=== PATIENT | male | born 1940 | race Caucasian/White ===

== ENCOUNTER 2018-09-29 08:25 | Day surgery (SDC) | payer MEDICARE, OTHER ==
[2018-09-29] MEDS ORDERED: Depo-Medrol 40 MG/ML IM ONE (08:26)
[2018-09-29] MEDS ORDERED: Xylocaine-Mpf 2% 5 Ml Vial IJ ONE (08:26)
[2018-09-29] MEDS ORDERED: DIPRIVAN 200 MG/20 ML IV ONE (08:26)
--- NOTE | 2018-09-29 10:58 | XRAY ---
15 seconds fluoroscopy time in surgery for L3-S1 MBB.
--- NOTE | 2018-09-29 11:08 | XRAY ---
Indication: L3-S1 MBB. Intraoperative fluoroscopy was provided for 15 seconds. 2 digital spot images submitted for interpretation demonstrates posterior spinal needle tips projecting over the expected course of the left and right L3-S1 nerve roots. Correlate with intraoperative findings/report.
[2018-09-29] MEDS ORDERED: Lactated Ringers 1,000 ML IV ONE (14:58)
== END 2018-09-29 10:05 | disposition home or self-care (01) ==
LOC: SDC-PAIN 08:25
PROVIDERS: ATTEND Psychiatry & Neurology Pain Medicine
DX: M47.816 Spondylosis without myelopathy or radiculopathy, lumbar region (principal); I10 Essential (primary) hypertension; E11.9 Type 2 diabetes mellitus without complications; Z79.899 Other long term (current) drug therapy; M54.5 Low back pain
CPT/HCPCS: 72020; 77002; J1030; J2704

== ENCOUNTER 2018-10-27 07:33 | Day surgery (SDC) | payer MEDICARE, OTHER ==
[2018-10-27] MEDS ORDERED: DIPRIVAN 200 MG/20 ML IV ONE (07:34)
[2018-10-27] MEDS ORDERED: Marcaine 0.5% SDV 10 ML IJ ONE (07:34)
[2018-10-27] MEDS ORDERED: Ketamine HCl 50 MG/ML IV ONE (07:34)
[2018-10-27] MEDS ORDERED: Xylocaine 1% Vial 30 ML PF IJ ONE (07:34)
[2018-10-27] MEDS ORDERED: Depo-Medrol 40 MG/ML IM ONE (07:34)
--- NOTE | 2018-10-27 10:59 | XRAY ---
Indication: Bilateral L3-S1 MBB. Intraoperative fluoroscopy was provided for 15 seconds. Single digital spot image submitted for interpretation demonstrates posterior spinal needle tips projecting over the expected course of the left and right L3-S1 nerve roots. Correlate with intraoperative findings/report.
--- NOTE | 2018-10-27 11:29 | XRAY ---
15 seconds fluoroscopy time in surgery for L3-S1 MBB.
[2018-10-27] MEDS ORDERED: Lactated Ringers 1,000 ML IV ONE (14:27)
== END 2018-10-27 09:43 | disposition home or self-care (01) ==
LOC: SDC-PAIN 07:33
PROVIDERS: ATTEND Psychiatry & Neurology Pain Medicine
DX: M47.817 Spondylosis without myelopathy or radiculopathy, lumbosacral region (principal); E11.9 Type 2 diabetes mellitus without complications; I10 Essential (primary) hypertension; M19.90 Unspecified osteoarthritis, unspecified site; I25.10 Atherosclerotic heart disease of native coronary artery without angina pectoris
CPT/HCPCS: 36415; 72100; 77002; 80048; 80061; 83721; 99100; J1030; J2001; J2704

== ENCOUNTER 2018-11-17 10:01 | Day surgery (SDC) | payer MEDICARE, OTHER ==
[2018-11-17] MEDS ORDERED: Depo-Medrol 40 MG/ML IM ONE (10:02)
[2018-11-17] MEDS ORDERED: Xylocaine 1% Vial 30 ML PF IJ ONE (10:02)
[2018-11-17] MEDS ORDERED: Marcaine 0.5% SDV 10 ML IJ ONE (10:02)
[2018-11-17] MEDS ORDERED: DIPRIVAN 200 MG/20 ML IV ONE (10:02)
[2018-11-17] MEDS ORDERED: Ketamine HCl 50 MG/ML IJ ONE (10:02)
--- NOTE | 2018-11-17 12:43 | XRAY ---
Indication: Left L3-S1 RFA. Intraoperative fluoroscopy was provided for 59 seconds. 3 digital spot images submitted for interpretation demonstrates posterior needle tips along the expected course of the left L3-S1 nerve roots. Correlate with intraoperative findings/report.
--- NOTE | 2018-11-17 12:48 | XRAY ---
59 seconds fluoroscopy time in surgery for left Ll3-S1 RFA.
[2018-11-17] MEDS ORDERED: Lactated Ringers 1,000 ML IV ONE (18:04)
== END 2018-11-17 11:48 | disposition home or self-care (01) ==
LOC: SDC-PAIN 10:01
PROVIDERS: ATTEND Psychiatry & Neurology Pain Medicine
DX: M47.817 Spondylosis without myelopathy or radiculopathy, lumbosacral region (principal); Z79.899 Other long term (current) drug therapy; E11.9 Type 2 diabetes mellitus without complications; M19.90 Unspecified osteoarthritis, unspecified site; I10 Essential (primary) hypertension; I25.10 Atherosclerotic heart disease of native coronary artery without angina pectoris
CPT/HCPCS: 64633; 64635; 64636; 72020; 77002; 82962; 99100; J1030; J2001; J2704

== ENCOUNTER 2018-12-01 07:51 | Day surgery (SDC) | payer MEDICARE, OTHER ==
[2018-12-01] MEDS ORDERED: Xylocaine 1% Vial 30 ML PF IJ ONE (07:52)
[2018-12-01] MEDS ORDERED: LIDOCAINE HCL 2% 100 MG/5 ML IJ ONE (07:52)
[2018-12-01] MEDS ORDERED: Depo-Medrol 40 MG/ML IM ONE (07:52)
[2018-12-01] MEDS ORDERED: Marcaine 0.5% SDV 10 ML IJ ONE (07:52)
[2018-12-01] MEDS ORDERED: DIPRIVAN 200 MG/20 ML IV ONE (07:52)
[2018-12-01] MEDS ORDERED: Ketamine HCl 50 MG/ML IJ ONE (07:52)
--- NOTE | 2018-12-01 11:23 | XRAY ---
Indication: Right L3-S1 RFA. Intraoperative fluoroscopy was provided for 36 seconds. 4 digital spot images submitted for interpretation demonstrates posterior needle tips along the expected course of the right L3-S1 nerve roots. Correlate with intraoperative findings/report.
--- NOTE | 2018-12-01 11:24 | XRAY ---
36 seconds fluoroscopy time in surgery for right L3-S1 RFA.
[2018-12-01] MEDS ORDERED: Lactated Ringers 1,000 ML IV ONE (17:08)
== END 2018-12-01 10:20 | disposition home or self-care (01) ==
LOC: SDC-PAIN 07:51
PROVIDERS: ATTEND Psychiatry & Neurology Pain Medicine
DX: M47.816 Spondylosis without myelopathy or radiculopathy, lumbar region (principal); E11.9 Type 2 diabetes mellitus without complications; I10 Essential (primary) hypertension; I25.10 Atherosclerotic heart disease of native coronary artery without angina pectoris; Z86.73 Personal history of transient ischemic attack (TIA), and cerebral infarction without residual deficits; Z95.0 Presence of cardiac pacemaker; M19.90 Unspecified osteoarthritis, unspecified site
CPT/HCPCS: 64635; 64636; 72020; 77002; 82962; 99100; J1030; J2001; J2704

== ENCOUNTER 2019-02-03 06:24 | Day surgery (SDC) | payer MEDICARE, OTHER ==
[2019-02-03] MEDS ORDERED: Lactated Ringers 1,000 ML IV ONE (06:47)
[2019-02-03] MEDS ORDERED: Lactated Ringers 1,000 ML IV SCH (07:00)
--- NOTE | 2019-02-03 08:13 | HP ---
DATE OF SURGERY: 02/03/2019 ANTICIPATED PROCEDURE: Colonoscopy. HISTORY OF PRESENT ILLNESS: The patient had rectal bleeding and presents for endoscopic exam referred by Dr. Khushbu Correa. PAST MEDICAL HISTORY: ALLERGIES: NONE. MEDICATIONS: See list. PAST SURGICAL HISTORY: Shoulder surgery. Bypass. SOCIAL HISTORY: Negative. FAMILY HISTORY: Negative. REVIEW OF SYSTEMS: Negative. PHYSICAL EXAMINATION: VITAL SIGNS: Normal. CHEST: Clear. COR: Regular. ABDOMEN: Satisfactory. IMPRESSION: Rectal bleeding. PLAN: Colonoscopy.
[2019-02-03] MEDS ORDERED: DIPRIVAN 200 MG/20 ML IV ONE ×2 (08:43→09:00)
[2019-02-03] MEDS ORDERED: PHENYLEPHRINE HCL ONE (08:51)
[2019-02-03 10:26] VITALS: O2SAT 95
[2019-02-03 10:29] VITALS: BP 134/65; PULSE 70
--- NOTE | 2019-02-03 13:02 | OP ---
SURGERY DATE/TIME: 02/03/2019 0848 PREOPERATIVE DIAGNOSIS: Rectal bleeding. POSTOPERATIVE DIAGNOSIS: Moderate internal hemorrhoids, one cecal polyp. PROCEDURE: Colonoscopy complete to cecum. There was a substantial amount of angulation and redundancy of the hepatic flexure but the cecum was obtained. Prep was marginal. SURGEON: Andrew Zavaleta M.D. WIRE MACHINE OPERATOR: Cameron Johnson M.D. ANESTHESIA: MAC. COMPLICATIONS: None. CONDITION: Stable. FOLLOW UP: Three years. INDICATION: The patient presents with rectal bleeding. DESCRIPTION OF PROCEDURE: Taken to endoscopy. Left lateral decubitus position. He is a robust gentleman. Anal tone was satisfactory. Scope introduced. There were moderate internal hemorrhoids. The scope advanced to the hepatic flexure and it took some care, patience and abdominal pressure to advance this over into the cecum which was about another 14 inches down. Base of cecum was identified. There was a 1 cm cecal polyp that was taken with cold biopsy forceps to extinction. On circumferential withdraw, no additional mucosal lesions although prep was marginal. There were moderate internal hemorrhoids. The patient tolerated the procedure satisfactorily. Recommended follow up in three years.
== END 2019-02-03 10:15 | disposition home or self-care (01) ==
LOC: SDC 06:24
PROVIDERS: ATTEND Surgery
DX: K62.5 Hemorrhage of anus and rectum (principal); K64.8 Other hemorrhoids; D12.0 Benign neoplasm of cecum; E11.9 Type 2 diabetes mellitus without complications
CPT/HCPCS: 82962; 99100; J2370; J2704

== ENCOUNTER 2019-11-11 07:07 | Observation (INO) | payer MEDICARE, OTHER ==
[2019-11-11] MEDS ORDERED: Sodium Chloride 0.9% 1000 ML 1,000 ML IV STA (07:52)
[2019-11-11] MEDS ORDERED: Sodium Chloride 0.9% 1000 ML 1,000 ML ONE (07:57)
--- NOTE | 2019-11-11 07:59 | ERPHSYRPT ---
- History of Present Illness Time Seen by Provider: 11/11/19 07:33 Source: patient Exam Limitations: no limitations Patient Subjective Stated Complaint: lower back and L hip pain d/t recent falls Triage Nursing Assessment: pt to ED c/o recent falls x few days and now having lower back and L hip pain. unable to give pain score at this time, "it just hurts." pt back to room via WC. transfers to bed with 1 assist. pt states multiple episodes dizziness and falls over last few days. pt states he is on plavix and zorelto. denies hitting head, no LOC. pt A&Ox3 at this time. communicates appropriately. lung sounds clear and equal bilaterally. heart sounds clear. bowel sounds present in all quads. pt has pacemaker and artificial heart valve. Physician History: 78 years old male with history of coronary artery disease status post CABG, pacemaker placement, CVA, diabetes mellitus, hypertension, hyperlipidemia presented in the ER with chief complaint of frequent fall and generalized weakness for the last 3 to 4 days. Patient reports having multiple falls whenever he tries to get up and walk and hit his head couple of times. No loss of consciousness. Patient reports he feels dizzy and lightheaded but denies any chest pain palpitations or shortness of breath. He denies any focal weakness but all over. Denies any recent nausea vomiting or diarrhea. No abdominal pain. No recent fever or chills reported. He is complaining of pain in the tailbone area mild to moderate especially with ambulation and palpation. Timing/Duration: day(s) (4), intermittent, worse Severity: moderate Modifying Factors: Improves With: movement Associated Symptoms: weakness (generalized) Allergies/Adverse Reactions: No Known Drug Allergies Allergy (Verified 11/11/19 07:34) Home Medications: Clopidogrel Bisulfate 75 mg [PLAVIX 75 MG Tablet] 75 mg PO DAILY 01/26/19 [History] Docusate Sodium 100 mg [Colace 100 MG] 100 mg PO DAILY 01/26/19 [History] Furosemide 40 mg [Lasix 40 MG] 40 mg PO DAILY 01/26/19 [History] Isosorbide Mononitrate 30 mg [Imdur 30 MG] 30 mg PO DAILY 01/26/19 [History ] Magnesium Oxide 400 mg [Mag-Ox 400] 400 mg PO DAILY 01/26/19 [History] Metoprolol Succinate 50 mg [Toprol Xl 50 MG] 50 mg PO DAILY 01/26/19 [ History] Pravastatin Sodium [Pravachol] 40 mg PO DAILY 01/26/19 [History] Rivaroxaban [Xarelto] 15 mg PO DAILY 01/26/19 [History] Sacubitril/Valsartan [Entresto 49 mg-51 mg Tablet] 1 each PO BID 01/26/19 [ History] Insulin Glargine,Hum.rec.anlog [Lantus] 100 unit SQ DAILY 02/03/19 [History] Insulin Lispro [Humalog] 100 unit SQ DAILY PRN 02/03/19 [History] Hx Tetanus, Diphtheria Vaccination/Date Given: No Hx Influenza Vaccination/Date Given: Yes Hx Pneumococcal Vaccination/Date Given: Yes Immunizations Up to Date: No Travel Risk - International Travel Have you traveled outside of the country in past 3 weeks: No Have you or anyone close to you been diagnosed with or: No Do your reside in a community with a known COVID-19 case?: Yes If Yes where:: [place] - Coronavirus Screening Has patient experienced Coronavirus symptoms: No - Review of Systems Constitutional: Fatigue Eyes: No Symptoms Ears, Nose, & Throat: No Symptoms Respiratory: No Symptoms Cardiac: No Symptoms Abdominal/Gastrointestinal: No Symptoms Genitourinary Symptoms: No Symptoms Musculoskeletal: Fall, Injury Skin: No Symptoms Neurological: No Symptoms Psychological: No Symptoms Endocrine: No Symptoms Hematologic/Lymphatic: No Symptoms Immunological/Allergic: No Symptoms - Past Medical History Pertinent Past Medical History: Yes Neurological History: Stroke ENT History: Cataracts Cardiac History: Congestive Heart Failure, Coronary Artery Disease, High Cholesterol, Hypertension Respiratory History: Sleep Apnea Endocrine Medical History: Diabetes Type II Musculoskeletal History: Arthritis GI Medical History: No Pertinent History History: No Pertinent History Psycho-Social History: No Pertinent History Male Reproductive Disorders: No Pertinent History - Past Surgical History Past Surgical History: Yes Neuro Surgical History: No Pertinent History Cardiac: CABG, Pacemaker Respiratory: No Pertinent History Gastrointestinal: No Pertinent History Genitourinary: No Pertinent History Musculoskeletal: Other Male Surgical History: No Pertinent History Other Surgical History: right knee, right shoulder surgery.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 - Social History Smoking Status: Former smoker Exposure to second hand smoke: No Drug Use: none - Nursing Vital Signs Nursing Vital Signs: Initial Vital Signs Temperature 97.8 F 11/11/19 07:17 Pulse Rate 60 11/11/19 07:17 Respiratory Rate 16 11/11/19 07:17 Blood Pressure 141/58 11/11/19 07:17 O2 Sat by Pulse Oximetry 96 11/11/19 07:17 - Physical Exam General Appearance: no apparent distress, alert Eye Exam: PERRL/EOMI, eyes nml inspection Ears, Nose, Throat Exam: normal ENT inspection, TMs normal, pharynx normal Neck Exam: normal inspection, non-tender, supple, full range of motion Respiratory Exam: normal breath sounds, lungs clear, airway intact, No respiratory distress Cardiovascular Exam: regular rate/rhythm, normal heart sounds, normal peripheral pulses Gastrointestinal/Abdomen Exam: soft, normal bowel sounds, No tenderness, No distention Rectal Exam: deferred Back Exam: decreased range of motion, point tenderness (Tailbone area), other, No CVA tenderness, No vertebral tenderness Extremity Exam: normal inspection, normal range of motion, pelvis stable Neurologic Exam: alert, oriented x 3, cooperative, jig borer II-XII nml as tested, normal mood/affect Skin Exam: normal color SpO2 Interpretation: normal SpO2: 96 O2 Delivery: Room Air - Course Nursing assessment & vital signs reviewed: Yes EKG Interpreted by Me: RATE (60), Right [place] Deviation (Rhythm. Wide QRS complexes. No acute ST elevation or depression) Ordered Tests: Active Orders 24 hr Category Date Time Status Student Admissions Clerk STAT Care 11/11/19 07:50 Active EKG-ER Only STAT Care 11/11/19 07:48 Active IV Insertion STAT Care 11/11/19 07:48 Active Orthostatic Vital Signs STAT Care 11/11/19 07:48 Active 2000 Calorie ADA Diet 11/11/19 Breakfast Active CHEST 1 VIEW (PORTABLE) Stat Exams 11/11/19 07:49 Completed HEAD WITHOUT CONTRAST [CT] Stat Exams 11/11/19 07:49 Completed LUMBAR COMPLETE (MIN 4 VIEWS) Stat Exams 11/11/19 08:13 Completed SACRUM AND COCCYX Stat Exams 11/11/19 08:15 Completed BNP [NT PRO BNP] Stat Lab 11/11/19 07:40 Completed CBC W DIFF Stat Lab 11/11/19 07:40 Completed CMP Stat Lab 11/11/19 07:40 Completed Lactic Acid Stat Lab 11/11/19 08:36 Completed TROPONIN Q3H Lab 11/11/19 07:40 Completed TROPONIN Q3H Lab 11/11/19 11:00 Ordered TROPONIN Q3H Lab 11/11/19 14:00 Ordered TROPONIN Q3H Lab 11/11/19 17:00 Ordered TROPONIN Q3H Lab 11/11/19 20:00 Ordered UA W/RFX UR CULTURE Stat Lab 11/11/19 07:49 Completed Medication Summary Discontinued Medications Generic Name Dose Route Start Last Admin Trade Name Freq PRN Reason Stop Dose Admin Sodium Chloride 1,000 mls @ 499 mls/hr 11/11/19 07:52 11/11/19 10:56 Sodium Chloride 0.9% 1000 Ml IV 11/11/19 09:52 Infused .Q2H1M STA Infusion Sodium Chloride Confirm 11/11/19 07:57 Sodium Chloride 0.9% 1000 Ml Administered 11/11/19 07:58 Dose 1,000 mls @ ud .ROUTE .STK-MED ONE Lab/Rad Data: Laboratory Result Diagrams 11/11/19 07:40 11/11/19 07:40 Laboratory Results 11/11/19 11/11/19 11/11/19 Range/Units 08:36 07:49 07:40 WBC (4.0-10.5) K/mm3 RBC (4.1-5.6) M/mm3 Hgb (12.5-18.0) gm/dl Hct (42-50) % MCV (78-100) fl MCH (26-32) pg MCHC (32-36) g/dl RDW (11.5-14.0) % Plt Count (150-450) K/mm3 MPV (7.5-11.0) fl Gran % (36.0-66.0) % Eos # (Auto) (0-0.5) Absolute Lymphs (auto) (1.0-4.6) Absolute Monos (auto) (0.0-1.3) Lymphocytes % (24.0-44.0) % Monocytes % (0.0-12.0) % Eosinophils % (0.00-5.0) % Basophils % (0.0-0.4) % Absolute Granulocytes (1.4-6.9) Basophils # (0-0.4) Sodium (137-145) mmol/L Potassium (3.5-5.1) mmol/L Chloride (98-107) mmol/L Carbon Dioxide (22-30) mmol/L Anion Gap (5-15) MEQ/L BUN (9-20) mg/dL Creatinine (0.66-1.25) mg/dL Estimated GFR ML/MIN Glucose (74-106) mg/dL Lactic Acid 1.1 (0.4-2.0) Calcium (8.4-10.2) mg/dL Total Bilirubin (0.2-1.3) mg/dL AST (17-59) U/L ALT (0-50) U/L Alkaline Phosphatase (38-126) U/L Troponin I < 0.012 (0.000-0.034) ng/mL NT-Pro-B Natriuret Pep (0-1800) pg/mL Serum Total Protein (6.3-8.2) g/dL Albumin (3.5-5.0) g/dL Urine Color YELLOW (YELLOW) Urine Appearance CLEAR (CLEAR) Urine pH 5.0 (5-6) Ur Specific [place] 1.014 (1.005-1.025) Urine Protein NEGATIVE (Negative) Urine Ketones NEGATIVE (NEGATIVE) Urine Blood NEGATIVE (0-5) Rigoberto/ul Urine Nitrite NEGATIVE (NEGATIVE) Urine Bilirubin NEGATIVE (NEGATIVE) Urine Urobilinogen NEGATIVE (0-1) mg/dL Ur Leukocyte Esterase NEGATIVE (NEGATIVE) Urine WBC (Auto) 0-2 (0-5) /HPF Urine RBC (Auto) NONE (0-2) /HPF U Epithel Cells (Auto) NONE (FEW) /HPF Urine Bacteria (Auto) NONE (NEGATIVE) /HPF Other Casts (Auto) NEGATIVE (NEGATIVE) /LPF Urine Mucus (Auto) SLIGHT (NEGATIVE) /HPF Urine Culture Reflexed NO (NO) Urine Glucose NEGATIVE (NEGATIVE) mg/dL 11/11/19 11/11/19 11/11/19 Range/Units 07:40 07:40 07:40 WBC 8.4 (4.0-10.5) K/mm3 RBC 3.77 L (4.1-5.6) M/mm3 Hgb 11.4 L (12.5-18.0) gm/dl Hct 34.9 L (42-50) % MCV 92.6 (78-100) fl MCH 30.2 (26-32) pg MCHC 32.7 (32-36) g/dl RDW 13.9 (11.5-14.0) % Plt Count 218 (150-450) K/mm3 MPV 10.2 (7.5-11.0) fl Gran % 71.1 H (36.0-66.0) % Eos # (Auto) 0.06 (0-0.5) Absolute Lymphs (auto) 1.65 (1.0-4.6) Absolute Monos (auto) 0.66 (0.0-1.3) Lymphocytes % 19.7 L (24.0-44.0) % Monocytes % 7.9 (0.0-12.0) % Eosinophils % 0.7 (0.00-5.0) % Basophils % 0.6 (0.0-0.4) % Absolute Granulocytes 5.97 (1.4-6.9) Basophils # 0.05 (0-0.4) Sodium 141 (137-145) mmol/L Potassium 4.1 (3.5-5.1) mmol/L Chloride 108 H (98-107) mmol/L Carbon Dioxide 26 (22-30) mmol/L Anion Gap 11.2 (5-15) MEQ/L BUN 36 H (9-20) mg/dL Creatinine 1.21 (0.66-1.25) mg/dL Estimated GFR > 60.0 ML/MIN Glucose 69 L (74-106) mg/dL Lactic Acid (0.4-2.0) Calcium 8.9 (8.4-10.2) mg/dL Total Bilirubin 0.40 (0.2-1.3) mg/dL AST 24 (17-59) U/L ALT 12 (0-50) U/L Alkaline Phosphatase 66 (38-126) U/L Troponin I (0.000-0.034) ng/mL NT-Pro-B Natriuret Pep 1250 (0-1800) pg/mL Serum Total Protein 7.2 (6.3-8.2) g/dL Albumin 3.7 (3.5-5.0) g/dL Urine Color (YELLOW) Urine Appearance (CLEAR) Urine pH (5-6) Ur Specific [place] (1.005-1.025) Urine Protein (Negative) Urine Ketones (NEGATIVE) Urine Blood (0-5) Rigoberto/ul Urine Nitrite (NEGATIVE) Urine Bilirubin (NEGATIVE) Urine Urobilinogen (0-1) mg/dL Ur Leukocyte Esterase (NEGATIVE) Urine WBC (Auto) (0-5) /HPF Urine RBC (Auto) (0-2) /HPF U Epithel Cells (Auto) (FEW) /HPF Urine Bacteria (Auto) (NEGATIVE) /HPF Other Casts (Auto) (NEGATIVE) /LPF Urine Mucus (Auto) (NEGATIVE) /HPF Urine Culture Reflexed (NO) Urine Glucose (NEGATIVE) mg/dL - Progress Progress: re-examined Progress Note: 71 years old is evaluated for generalized weakness and frequent falls. He has positive orthostatics. Given IV fluids. Broad work-up was done including CT head which is negative for any acute findings. EKG is paced rhythm, negative initial troponin. Normal lactate. No acute electrolyte abnormality. No UTI. I do not know the exact cause of his weakness, cultures will be obtained, discussed with Dr. Starr, patient would be admitted to telemetry with PT consult. 11/11/19 11:04 Discussed with : Mounika Will see patient in: hospital (observation) Counseled pt/family regarding: lab results, diagnosis, rad results - Departure Departure Disposition: Home Clinical Impression: General weakness, Frequent falls Condition: Fair Critical Care Time: No Referrals: DELGADO CISNEROS [Primary Care Provider] -
[2019-11-11 08:01] LABS: Absolute Neutrophil Ct (ANC) 5.97 (1.4-6.9); BASOPHIL % 0.6 % (0.0-0.4); Basophil (Absolute #) 0.05 (0-0.4); Eosinophil % 0.7 % (0.00-5.0); Eosinophil (Absolute #) 0.06 (0-0.5); Hematocrit 34.9 % (42-50); Hemoglobin 11.4 gm/dl (12.5-18.0); Lymphocyte (Absolute #) 1.65 (1.0-4.6); Lymphocytes % 19.7 % (24.0-44.0); Mean Cell Volume 92.6 fl (78-100); Mean Corpuscular Hemoglobin 30.2 pg (26-32); Mean Corpuscular Hgb Concent. 32.7 g/dl (32-36); Mean Platelet Volume 10.2 fl (7.5-11.0); Monocyte (Absolute #) 0.66 (0.0-1.3); Monocytes % 7.9 % (0.0-12.0); Neutrophil % 71.1 % (36.0-66.0); Platelet Count 218 K/mm3 (150-450); Red Blood Count 3.77 M/mm3 (4.1-5.6); Red Cell Distribution Width 13.9 % (11.5-14.0); White Blood Count 8.4 K/mm3 (4.0-10.5)
[2019-11-11 08:08] LABS: ALBUMIN 3.7 g/dL (3.5-5.0); ALKALINE PHOSPHATASE 66 U/L (38-126); ANION GAP 11.2 MEQ/L (5-15); BLOOD UREA NITROGEN 36 mg/dL (9-20); CHLORIDE 108 mmol/L (98-107); Calcium 8.9 mg/dL (8.4-10.2); Carbon Dioxide 26 mmol/L (22-30); Creatinine 1 1.21 mg/dL (0.66-1.25); Glucose 69 mg/dL (74-106); Potassium 4.1 mmol/L (3.5-5.1); SGOT/AST 24 U/L (17-59); SGPT/ALT 12 U/L (0-50); SODIUM 141 mmol/L (137-145); Total Protein 7.2 g/dL (6.3-8.2)
--- NOTE | 2019-11-11 08:37 | XRAY ---
Indication: Pain and dizziness. Status post fall. Comparison: January 19, 2019. Portable chest remains clear again with a few incidental calcified granulomas. Heart is borderline enlarged again with CABG surgery and left pacemaker. Bony thorax intact. No new/acute findings. Impression: Continued nonacute chest with chronic features.
--- NOTE | 2019-11-11 08:42 | XRAY ---
Indication: Dizziness. Frequent falls. Multiple contiguous axial images obtained through the head without contrast. Comparison: None Age-appropriate global atrophy, mild periventricular degenerative micro-ischemia bilaterally, and remote right basal ganglia lacunar infarct. No acute intracranial hemorrhage, abnormal extra-axial fluid collection, or mass effect. Fourth ventricle is midline without hydrocephalus. Bony calvarium intact. Visualized paranasal sinuses and mastoid air cells are clear. Impression: Nonacute senile brain with incidental remote right basal ganglia lacunar infarct.
--- NOTE | 2019-11-11 08:44 | XRAY ---
Indication: Pain following fall. Comparison: February 02, 2018. 5 views of the lumbar spine unchanged again demonstrating normal alignment with vertebral body heights/disc spaces maintained, mild/moderate multilevel degenerative spondylosis, and scattered aortoiliac calcifications. No new/acute findings.
--- NOTE | 2019-11-11 08:48 | XRAY ---
Indication: Pain following fall. Comparison: None 3 views of the sacrum/coccyx again demonstrates lower lumbar degenerative changes reported separately and scattered vascular calcifications with new left femoral artery stent graft. No acute bony, articular, or soft tissue abnormalities.
[2019-11-11 10:44] LABS: Appearance CLEAR (CLEAR); Bilirubin NEGATIVE (NEGATIVE); Blood NEGATIVE Ery/ul (0-5); Glucose NEGATIVE (NEGATIVE); Ketones NEGATIVE (NEGATIVE); Leukocyte Esterase NEGATIVE (NEGATIVE); Mucus SLIGHT /HPF (NEGATIVE); Nitrite NEGATIVE (NEGATIVE); Protein,Urine Dip NEGATIVE (Negative); Specific Gravity 1.014 (1.005-1.025); Urobilinogen NEGATIVE mg/dL (0-1); WBC 0-2 /HPF (0-5)
[2019-11-11] MEDS ORDERED: HUMALOG SQ PRN (11:59)
[2019-11-11] MEDS: TYLENOL 325 MG PO PRN ×2 (12:40→20:53)
[2019-11-11 14:15] LABS: ANION GAP 10.2 MEQ/L (5-15); Calcium 8.6 mg/dL (8.4-10.2); Creatinine 1 1.3 mg/dL (0.66-1.25); Potassium 3.8 mmol/L (3.5-5.1)
[2019-11-11] MEDS ORDERED: NON-FORMULARY ITEM (Insulin Lispro 100 UNIT) SQ PRN (16:39)
[2019-11-11] MEDS: Sodium Chloride 0.9% 1000 ML 1,000 ML IV SCH (18:00)
[2019-11-11 19:33] VITALS: PULSE 60
[2019-11-11] MEDS: ENTRESTO 49 MG-51 MG TABLET PO SCH (20:53)
[2019-11-12] MEDS: TYLENOL 325 MG PO PRN (05:16)
[2019-11-12 05:36] LABS: BASOPHIL % 0.8 % (0.0-0.4); Basophil (Absolute #) 0.05 (0-0.4); Eosinophil % 1.4 % (0.00-5.0); Eosinophil (Absolute #) 0.09 (0-0.5); Hematocrit 36.3 % (42-50); Hemoglobin 11.8 gm/dl (12.5-18.0); Lymphocyte (Absolute #) 1.71 (1.0-4.6); Lymphocytes % 26.8 % (24.0-44.0); Mean Cell Volume 93.8 fl (78-100); Mean Corpuscular Hemoglobin 30.5 pg (26-32); Mean Corpuscular Hgb Concent. 32.5 g/dl (32-36); Mean Platelet Volume 9.6 fl (7.5-11.0); Monocyte (Absolute #) 0.43 (0.0-1.3); Monocytes % 6.7 % (0.0-12.0); Neutrophil % 64.3 % (36.0-66.0); Platelet Count 215 K/mm3 (150-450); Red Blood Count 3.87 M/mm3 (4.1-5.6); Red Cell Distribution Width 13.7 % (11.5-14.0); White Blood Count 6.4 K/mm3 (4.0-10.5)
[2019-11-12 05:48] LABS: ALBUMIN 3.8 g/dL (3.5-5.0); ALKALINE PHOSPHATASE 74 U/L (38-126); ANION GAP 13.1 MEQ/L (5-15); BLOOD UREA NITROGEN 28 mg/dL (9-20); CHLORIDE 107 mmol/L (98-107); Calcium 8.6 mg/dL (8.4-10.2); Carbon Dioxide 23 mmol/L (22-30); Creatinine 1 1.06 mg/dL (0.66-1.25); Glucose 135 mg/dL (74-106); Potassium 4.3 mmol/L (3.5-5.1); SGOT/AST 26 U/L (17-59); SGPT/ALT 13 U/L (0-50); SODIUM 139 mmol/L (137-145); Total Protein 7.6 g/dL (6.3-8.2)
[2019-11-12 08:02] VITALS: BP 134/61; O2SAT 96
[2019-11-12] MEDS: Sodium Chloride 0.9% 1000 ML 1,000 ML IV SCH (08:22)
[2019-11-12] MEDS: ENTRESTO 49 MG-51 MG TABLET PO SCH (09:50)
[2019-11-12] MEDS: Cymbalta 30 MG Capsule PO SCH ×2 (09:50→10:50)
[2019-11-12] MEDS ORDERED: NON-FORMULARY ITEM (Rivaroxaban [Xarelto] 15 MG) PO SCH (10:00)
[2019-11-12] MEDS ORDERED: XARELTO 10 MG TABLET PO SCH (10:00)
[2019-11-12] MEDS ORDERED: Lasix 40 MG PO SCH (10:00)
[2019-11-12] MEDS ORDERED: Colace 100 MG PO SCH (10:00)
[2019-11-12] MEDS ORDERED: MAG-OX 400 PO SCH (10:00)
[2019-11-12] MEDS ORDERED: NON-FORMULARY ITEM (Pravastatin Sodium [Pravachol] 40 MG) PO SCH (10:00)
[2019-11-12] MEDS ORDERED: ZOCOR 20MG PO SCH (10:00)
[2019-11-12] MEDS ORDERED: Toprol Xl 50 MG PO SCH (10:00)
[2019-11-12] MEDS ORDERED: PLAVIX 75 MG Tablet PO SCH (10:00)
--- NOTE | 2019-11-12 11:28 | PCM.SSS ---
History of Present Illness - Chief Complaint Chief Complaint: General weakness. History of Present Illness: is a 78 year old male pt of Dr. Cisneros with PMHx CAD (hx CABG), PVD (hx stents), artifical heart valve (aorta), pacemaker (replaced 2 wks ago), DM, diabetic peripheral neuropathy, HTN, NESS, and chronic back pain who was admitted through ER with frequent falls and weakness. He denies lizette dizziness. About 2 weeks ago he started having some falls, which gradually increased until the day prior to admission he had falls x5. He did have increased low back pain with the falls. He is on xarelto and plavix. In ER, his CT head and xr lumbar spine were neg. His labs were grossly neg. CXR nonacute. Troponins have been nl x 5. His labs this morning are again unremarkable. Since admission, he has not fallen. He has been up around his room and to the bathroom with no issues. He was found to be orthostatic in ER. His BP have been 130s-140s systolic. He has been on telemetry. In light of the current coronavirus pandemic (and a pending admission of possible COVID-19 this morning), I am discharging this very high risk patient to home. I advised him to stay in; be careful of falling of course, but minimize contacts with others. I am sending a message to Dr. Cisneros who can contact the pt next week to see if she wants him to f/u with her or cardiology or both. - Review of Systems Constitutional: Weakness Cardiac: Chest Pain (mild, did not have to take nitro) Neurological: Other (falls) All Other Systems: Reviewed and Negative Medications & Allergies Home Medications: Home Medication List Clopidogrel Bisulfate 75 mg [PLAVIX 75 MG Tablet] 75 mg PO DAILY 01/26/19 [History Confirmed 11/11/19] Docusate Sodium 100 mg [Colace 100 MG] 100 mg PO DAILY 01/26/19 [History Confirmed 11/11/19] Furosemide 40 mg [Lasix 40 MG] 40 mg PO DAILY 01/26/19 [History Confirmed 11/11/19] Magnesium Oxide 400 mg [Mag-Ox 400] 400 mg PO DAILY 01/26/19 [History Confirmed 11/11/19] Metoprolol Succinate 50 mg [Toprol Xl 50 MG] 50 mg PO DAILY 01/26/19 [ History Confirmed 11/11/19] Pravastatin Sodium [Pravachol] 40 mg PO DAILY 01/26/19 [History Confirmed ] Rivaroxaban [Xarelto] 15 mg PO DAILY 01/26/19 [History Confirmed 11/11/19] Sacubitril/Valsartan [Entresto 49 mg-51 mg Tablet] 1 each PO BID 01/26/19 [ History Confirmed 11/11/19] Insulin Glargine,Hum.rec.anlog [Lantus] 100 unit SQ LUNCH 02/03/19 [History Confirmed 11/11/19] Insulin Lispro [Humalog] 100 unit SQ DAILY PRN 02/03/19 [History Confirmed 11/10] Allergies/Adverse Reactions: Allergies Allergy/AdvReac Type Severity Reaction Status Date / Time No Known Drug Allergies Allergy Verified 11/11/19 07:34 - Past Medical History Past Medical History: Yes Neurological History: Stroke ENT History: Cataracts Cardiac History: Congestive Heart Failure, Coronary Artery Disease, High Cholesterol, Hypertension Respiratory History: Sleep Apnea Endocrine Medical History: Diabetes Type II Musculoskelatal History: Arthritis GI Medical History: No Pertinent History History: No Pertinent History Pyscho-Social History: No Pertinent History Male Reproductive Disorders: No Pertinent History - Past Surgical History Past Surgical History: Yes Neuro Surgical History: No Pertinent History Cardiac History: CABG, Pacemaker Respiratory Surgery: No Pertinent History GI Surgical History: No Pertinent History Genitourinary Surgical Hx: No Pertinent History Musculskeletal Surgical Hx: Other Male Surgical History: No Pertinent History Other Surgical History: right knee, right shoulder surgery.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 - Social History Smoking Status: Former smoker Exposure to second hand smoke: No Alcohol: None Drug Use: none - Physical Exam Vital Signs: Vital Signs - 24 hr Temp Pulse Resp BP Pulse Ox 11/12/19 08:00 97.6 F 60 18 134/61 96 11/12/19 04:00 97.9 F 60 18 144/65 97 11/11/19 23:34 97.9 F 60 20 142/67 95 11/11/19 19:32 97.7 F 60 18 109/51 96 11/11/19 16:00 97.8 F 65 20 132/60 92 L 11/11/19 13:00 97.8 F 64 20 147/66 97 11/11/19 12:07 97.8 F 64 20 147/66 97 General Appearance: no apparent distress, obese Neurologic Exam: alert, oriented x 3, cooperative Eye Exam: eyes nml inspection Ears, Nose, Throat Exam: moist mucous membranes Neck Exam: normal inspection, supple Respiratory Exam: normal breath sounds, lungs clear, No crackles/rales, No rhonchi, No wheezing Cardiovascular Exam: regular rate/rhythm, normal heart sounds, No murmur Gastrointestinal/Abdomen Exam: soft, normal bowel sounds, No tenderness, No distention, No mass, No guarding, No rebound Extremity Exam: other (L knee anteriorly with irregular apptox 3x5cm eschar with no surrounding induration, very mild surrounding erythema), No pedal edema , No swelling Wound Assessment: Skin/Wound Assessment Wound/Incision Assessment Start: 11/11/19 13: 15 Text: Status: Active Freq: Q6H Protocol: Document 11/12/19 08:00 (Rec: 11/12/19 09:08 [id number]) Wound/Incision Assessment Right Toe Wound Assessment Admission Wound Type Abrasion Wound Stage Non Pressure Wound Comment R foot 2nd and 4th toe scabbed without drainage noted. Knee Wound Assessment Admission Wound Type Abrasion Wound Stage Non Pressure Wound Surrounding Tissue Bright Red Comment large abrasion to L knee. Small scabbed areas to R knee; both closed without drainage. Wound Photo Photo Taken Yes Date: 11/11/19 Time: 12:10 Distance from Wound: from bedside. Results - Labs Lab/Micro Results: Accuchecks Date 11/11/19 Date 11/11/19 Date 11/11/19 Time 20:00 Time 16:22 Time 12:50 Accucheck Value: 158 Accucheck Value: 96 Accucheck Value: 115 Accucheck Value: 118 Accucheck Value: 91 Accucheck Value: 85 Lab Results-Last 24 Hours 11/11/19 11/11/19 11/11/19 Range/Units 11:05 13:59 13:59 WBC (4.0-10.5) K/mm3 RBC (4.1-5.6) M/mm3 Hgb (12.5-18.0) gm/dl Hct (42-50) % MCV (78-100) fl MCH (26-32) pg MCHC (32-36) g/dl RDW (11.5-14.0) % Plt Count (150-450) K/mm3 MPV (7.5-11.0) fl Gran % (36.0-66.0) % Eos # (Auto) (0-0.5) Absolute Lymphs (auto) (1.0-4.6) Absolute Monos (auto) (0.0-1.3) Lymphocytes % (24.0-44.0) % Monocytes % (0.0-12.0) % Eosinophils % (0.00-5.0) % Basophils % (0.0-0.4) % Absolute Granulocytes (1.4-6.9) Basophils # (0-0.4) Sodium 140 (137-145) mmol/L Potassium 3.8 (3.5-5.1) mmol/L Chloride 107 (98-107) mmol/L Carbon Dioxide 27 (22-30) mmol/L Anion Gap 10.2 (5-15) MEQ/L BUN 34 H (9-20) mg/dL Creatinine 1.30 H (0.66-1.25) mg/dL Estimated GFR 56.9 ML/MIN Glucose 93 (74-106) mg/dL Calcium 8.6 (8.4-10.2) mg/dL Total Bilirubin (0.2-1.3) mg/dL AST (17-59) U/L ALT (0-50) U/L Alkaline Phosphatase (38-126) U/L Troponin I < 0.012 < 0.012 (0.000-0.034) ng/mL Serum Total Protein (6.3-8.2) g/dL Albumin (3.5-5.0) g/dL 11/11/19 11/11/19 11/12/19 Range/Units 17:58 20:20 05:25 WBC 6.4 (4.0-10.5) K/mm3 RBC 3.87 L (4.1-5.6) M/mm3 Hgb 11.8 L (12.5-18.0) gm/dl Hct 36.3 L (42-50) % MCV 93.8 (78-100) fl MCH 30.5 (26-32) pg MCHC 32.5 (32-36) g/dl RDW 13.7 (11.5-14.0) % Plt Count 215 (150-450) K/mm3 MPV 9.6 (7.5-11.0) fl Gran % 64.3 (36.0-66.0) % Eos # (Auto) 0.09 (0-0.5) Absolute Lymphs (auto) 1.71 (1.0-4.6) Absolute Monos (auto) 0.43 (0.0-1.3) Lymphocytes % 26.8 (24.0-44.0) % Monocytes % 6.7 (0.0-12.0) % Eosinophils % 1.4 (0.00-5.0) % Basophils % 0.8 (0.0-0.4) % Absolute Granulocytes 4.10 (1.4-6.9) Basophils # 0.05 (0-0.4) Sodium (137-145) mmol/L Potassium (3.5-5.1) mmol/L Chloride (98-107) mmol/L Carbon Dioxide (22-30) mmol/L Anion Gap (5-15) MEQ/L BUN (9-20) mg/dL Creatinine (0.66-1.25) mg/dL Estimated GFR ML/MIN Glucose (74-106) mg/dL Calcium (8.4-10.2) mg/dL Total Bilirubin (0.2-1.3) mg/dL AST (17-59) U/L ALT (0-50) U/L Alkaline Phosphatase (38-126) U/L Troponin I < 0.012 < 0.012 (0.000-0.034) ng/mL Serum Total Protein (6.3-8.2) g/dL Albumin (3.5-5.0) g/dL 11/12/19 Range/Units 05:25 WBC (4.0-10.5) K/mm3 RBC (4.1-5.6) M/mm3 Hgb (12.5-18.0) gm/dl Hct (42-50) % MCV (78-100) fl MCH (26-32) pg MCHC (32-36) g/dl RDW (11.5-14.0) % Plt Count (150-450) K/mm3 MPV (7.5-11.0) fl Gran % (36.0-66.0) % Eos # (Auto) (0-0.5) Absolute Lymphs (auto) (1.0-4.6) Absolute Monos (auto) (0.0-1.3) Lymphocytes % (24.0-44.0) % Monocytes % (0.0-12.0) % Eosinophils % (0.00-5.0) % Basophils % (0.0-0.4) % Absolute Granulocytes (1.4-6.9) Basophils # (0-0.4) Sodium 139 (137-145) mmol/L Potassium 4.3 (3.5-5.1) mmol/L Chloride 107 (98-107) mmol/L Carbon Dioxide 23 (22-30) mmol/L Anion Gap 13.1 (5-15) MEQ/L BUN 28 H (9-20) mg/dL Creatinine 1.06 (0.66-1.25) mg/dL Estimated GFR > 60.0 ML/MIN Glucose 135 H (74-106) mg/dL Calcium 8.6 (8.4-10.2) mg/dL Total Bilirubin 0.60 (0.2-1.3) mg/dL AST 26 (17-59) U/L ALT 13 (0-50) U/L Alkaline Phosphatase 74 (38-126) U/L Troponin I (0.000-0.034) ng/mL Serum Total Protein 7.6 (6.3-8.2) g/dL Albumin 3.8 (3.5-5.0) g/dL Accuchecks Date 11/11/19 Date 11/11/19 Date 11/11/19 Time 20:00 Time 16:22 Time 12:50 Accucheck Value: 158 Accucheck Value: 96 Accucheck Value: 115 Accucheck Value: 118 Accucheck Value: 91 Accucheck Value: 85 - Radiology Impressions Radiology Exams & Impressions: Radiology Procedures Category Date Time Status CHEST 1 VIEW (PORTABLE) Stat Exams 11/11/19 07:49 Completed HEAD WITHOUT CONTRAST [CT] Stat Exams 11/11/19 07:49 Completed LUMBAR COMPLETE (MIN 4 VIEWS) Stat Exams 11/11/19 08:13 Completed SACRUM AND COCCYX Stat Exams 11/11/19 08:15 Completed Assessment/Plan (1) Frequent falls Current Visit: Yes Status: Acute Assessment & Plan: May have been med side effect of Cymbalta; holding that. He was reported to be orthostatic in ER, so may have had some mild dehydration, although labs did not indicate that. The sx did also start just after his pacemaker was changed, so may need to have that interrogated. However, doing well here, no issues, and workup negative. Due to concern about carla infection, will d/c pt to home. Code(s): R29.6 - REPEATED FALLS (2) Orthostatic hypotension Current Visit: Yes Status: Acute Code(s): I95.1 - ORTHOSTATIC HYPOTENSION (3) General weakness Current Visit: Yes Status: Acute Code(s): R53.1 - WEAKNESS (4) Open knee wound Current Visit: Yes Status: Acute Qualifiers: Encounter type: initial encounter Laterality: left Qualified Code(s): S81.002A - Unspecified open wound, left knee, initial encounter Assessment & Plan: Advised warm compress, gently work on eschar, cover with salve (he has some from Dr. Jaime) and dressing. Code(s): S81.009A - UNSPECIFIED OPEN WOUND, UNSPECIFIED KNEE, INITIAL ENCOUNTER (5) Diabetes mellitus Current Visit: Yes Status: Chronic Qualifiers: Diabetes mellitus type: type 2 Diabetes mellitus intermediate insulin use: with terminal carman use Diabetes mellitus complication status: with circulatory complication Diabetes mellitus complication detail: with peripheral angiopathy without gangrene Qualified Code(s): E11.51 - Type 2 diabetes mellitus with diabetic peripheral angiopathy without gangrene; Z79.4 - MCC (current) use of insulin Code(s): E11.9 - TYPE 2 DIABETES MELLITUS WITHOUT COMPLICATIONS (6) Coronary artery disease Current Visit: Yes Status: Chronic Qualifiers: Coronary Disease-Associated Artery/Lesion type: bypass graft [place] vs. transplanted heart: [place] heart Associated angina: with stable angina Qualified Code(s): I25.708 - Atherosclerosis of coronary artery bypass graft(s) , unspecified, with other forms of angina pectoris Code(s): I25.10 - ATHSCL HEART DISEASE OF [place] CORONARY ARTERY W/O ANG PCTRS (7) Peripheral artery disease Current Visit: Yes Status: Chronic Code(s): I73.9 - PERIPHERAL VASCULAR DISEASE, UNSPECIFIED (8) Pacemaker Current Visit: Yes Status: Chronic Assessment & Plan: Did start having increased sx after pacer changed. Code(s): Z95.0 - PRESENCE OF CARDIAC PACEMAKER (9) artificial aortic valve Current Visit: Yes Status: Chronic Hospital Summary - Hospital Course Hospital Course: is a 78 year old male pt of Dr. Cisneros with PMHx CAD (hx CABG), PVD (hx stents), artifical heart valve (aorta), pacemaker (replaced 2 wks ago), DM, diabetic peripheral neuropathy, HTN, NESS, and chronic back pain who was admitted through ER with frequent falls and weakness. He denies lizette dizziness. About 2 weeks ago he started having some falls, which gradually increased until the day prior to admission he had falls x5. He did have increased low back pain with the falls. He is on xarelto and plavix. In ER, his CT head and xr lumbar spine were neg. His labs were grossly neg. CXR nonacute. Troponins have been nl x 5. His labs this morning are again unremarkable. Since admission, he has not fallen. He has been up around his room and to the bathroom with no issues. He was found to be orthostatic in ER. His BP have been 130s-140s systolic. He has been on telemetry. He recently started generic cymbalta and thinks that may be contributing, which is certainly possible. He has stopped that and will continue holding it until he follows up with Dr. Cisneros. In light of the current coronavirus pandemic (and a pending admission of possible COVID-19 this morning), I am discharging this very high risk patient to home. I advised him to stay in; be careful of falling of course, but minimize contacts with others. I am sending a message to Dr. Cisneros who can contact the pt next week to see if she wants him to f/u with her or cardiology or both. - Vitals & Intake/Output Vital Signs: Vital Signs Temperature 97.6 F 11/12/19 08:00 Pulse Rate 60 11/12/19 08:00 Respiratory Rate 18 11/12/19 08:00 Blood Pressure 134/61 11/12/19 08:00 O2 Sat by Pulse Oximetry 96 03/28/20 08:00 Intake & Output: Intake & Output 11/09/19 11/10/19 11/11/19 11/12/19 11:59 11:59 11:59 11:59 Intake Total 1579 Output Total 1800 Balance -221 Weight 130 kg 129.9 kg - Lab Result Diagrams: 11/12/19 05:25 11/12/19 05:25 Lab Results-Last 24 Hrs: Accuchecks Date 11/11/19 Date 11/11/19 Date 11/11/19 Time 20:00 Time 16:22 Time 12:50 Accucheck Value: 158 Accucheck Value: 96 Accucheck Value: 115 Accucheck Value: 118 Accucheck Value: 91 Accucheck Value: 85 Lab Results-Last 24 Hours 11/11/19 11/11/19 11/11/19 Range/Units 11:05 13:59 13:59 WBC (4.0-10.5) K/mm3 RBC (4.1-5.6) M/mm3 Hgb (12.5-18.0) gm/dl Hct (42-50) % MCV (78-100) fl MCH (26-32) pg MCHC (32-36) g/dl RDW (11.5-14.0) % Plt Count (150-450) K/mm3 MPV (7.5-11.0) fl Gran % (36.0-66.0) % Eos # (Auto) (0-0.5) Absolute Lymphs (auto) (1.0-4.6) Absolute Monos (auto) (0.0-1.3) Lymphocytes % (24.0-44.0) % Monocytes % (0.0-12.0) % Eosinophils % (0.00-5.0) % Basophils % (0.0-0.4) % Absolute Granulocytes (1.4-6.9) Basophils # (0-0.4) Sodium 140 (137-145) mmol/L Potassium 3.8 (3.5-5.1) mmol/L Chloride 107 (98-107) mmol/L Carbon Dioxide 27 (22-30) mmol/L Anion Gap 10.2 (5-15) MEQ/L BUN 34 H (9-20) mg/dL Creatinine 1.30 H (0.66-1.25) mg/dL Estimated GFR 56.9 ML/MIN Glucose 93 (74-106) mg/dL Calcium 8.6 (8.4-10.2) mg/dL Total Bilirubin (0.2-1.3) mg/dL AST (17-59) U/L ALT (0-50) U/L Alkaline Phosphatase (38-126) U/L Troponin I < 0.012 < 0.012 (0.000-0.034) ng/mL Serum Total Protein (6.3-8.2) g/dL Albumin (3.5-5.0) g/dL 11/11/19 11/11/19 11/12/19 Range/Units 17:58 20:20 05:25 WBC 6.4 (4.0-10.5) K/mm3 RBC 3.87 L (4.1-5.6) M/mm3 Hgb 11.8 L (12.5-18.0) gm/dl Hct 36.3 L (42-50) % MCV 93.8 (78-100) fl MCH 30.5 (26-32) pg MCHC 32.5 (32-36) g/dl RDW 13.7 (11.5-14.0) % Plt Count 215 (150-450) K/mm3 MPV 9.6 (7.5-11.0) fl Gran % 64.3 (36.0-66.0) % Eos # (Auto) 0.09 (0-0.5) Absolute Lymphs (auto) 1.71 (1.0-4.6) Absolute Monos (auto) 0.43 (0.0-1.3) Lymphocytes % 26.8 (24.0-44.0) % Monocytes % 6.7 (0.0-12.0) % Eosinophils % 1.4 (0.00-5.0) % Basophils % 0.8 (0.0-0.4) % Absolute Granulocytes 4.10 (1.4-6.9) Basophils # 0.05 (0-0.4) Sodium (137-145) mmol/L Potassium (3.5-5.1) mmol/L Chloride (98-107) mmol/L Carbon Dioxide (22-30) mmol/L Anion Gap (5-15) MEQ/L BUN (9-20) mg/dL Creatinine (0.66-1.25) mg/dL Estimated GFR ML/MIN Glucose (74-106) mg/dL Calcium (8.4-10.2) mg/dL Total Bilirubin (0.2-1.3) mg/dL AST (17-59) U/L ALT (0-50) U/L Alkaline Phosphatase (38-126) U/L Troponin I < 0.012 < 0.012 (0.000-0.034) ng/mL Serum Total Protein (6.3-8.2) g/dL Albumin (3.5-5.0) g/dL 11/12/19 Range/Units 05:25 WBC (4.0-10.5) K/mm3 RBC (4.1-5.6) M/mm3 Hgb (12.5-18.0) gm/dl Hct (42-50) % MCV (78-100) fl MCH (26-32) pg MCHC (32-36) g/dl RDW (11.5-14.0) % Plt Count (150-450) K/mm3 MPV (7.5-11.0) fl Gran % (36.0-66.0) % Eos # (Auto) (0-0.5) Absolute Lymphs (auto) (1.0-4.6) Absolute Monos (auto) (0.0-1.3) Lymphocytes % (24.0-44.0) % Monocytes % (0.0-12.0) % Eosinophils % (0.00-5.0) % Basophils % (0.0-0.4) % Absolute Granulocytes (1.4-6.9) Basophils # (0-0.4) Sodium 139 (137-145) mmol/L Potassium 4.3 (3.5-5.1) mmol/L Chloride 107 (98-107) mmol/L Carbon Dioxide 23 (22-30) mmol/L Anion Gap 13.1 (5-15) MEQ/L BUN 28 H (9-20) mg/dL Creatinine 1.06 (0.66-1.25) mg/dL Estimated GFR > 60.0 ML/MIN Glucose 135 H (74-106) mg/dL Calcium 8.6 (8.4-10.2) mg/dL Total Bilirubin 0.60 (0.2-1.3) mg/dL AST 26 (17-59) U/L ALT 13 (0-50) U/L Alkaline Phosphatase 74 (38-126) U/L Troponin I (0.000-0.034) ng/mL Serum Total Protein 7.6 (6.3-8.2) g/dL Albumin 3.8 (3.5-5.0) g/dL Micro Results-Entire Visit: Accuchecks Date 11/11/19 Date 11/11/19 Date 11/11/19 Time 20:00 Time 16:22 Time 12:50 Accucheck Value: 158 Accucheck Value: 96 Accucheck Value: 115 Accucheck Value: 118 Accucheck Value: 91 Accucheck Value: 85 - Radiology Exams Ordered Rad Exams-Entire Visit: Radiology Procedures Category Date Time Status CHEST 1 VIEW (PORTABLE) Stat Exams 11/11/19 07:49 Completed HEAD WITHOUT CONTRAST [CT] Stat Exams 11/11/19 07:49 Completed LUMBAR COMPLETE (MIN 4 VIEWS) Stat Exams 11/11/19 08:13 Completed SACRUM AND COCCYX Stat Exams 11/11/19 08:15 Completed - Procedures and Test Procedures and Tests throughout Hospitalization: Therapy Orders & Screens 11/11/19 13:15 PT Screen per Nursing Assess ONCE Comment: Protocol Order Physician Instructions: Greater than 3 points order PT Admission Screenin Reason For Exam: Triggered on Admission Diagnosis: General weakness. Open Wound/Cellutlitis/Pressure Ulcers: No Acute Fx/ORIF/Change in wt bearing status: Yes Severe MUSCULOSKELETAL pain: Yes ADL Dysfunction: Yes Acute CVA w/Hemiparesis/Hemiplegia: No Decreased Functional Mobility/Strength: Yes Sprain/Strain: No Acute Post-op Mobility Dysfunction: No Total Points: 14 11/11/19 14:34 PT Eval & Treat (MD Order) ROUTINE Reason for Eval:: weakness and fall Diagnosis: General weakness. - Discharge Disposition: Home, Self-Care Condition: Stable Prescriptions: Continue Magnesium Oxide 400 mg [Mag-Ox 400] 400 mg PO DAILY Docusate Sodium 100 mg [Colace 100 MG] 100 mg PO DAILY Pravastatin Sodium [Pravachol] 40 mg PO DAILY Clopidogrel Bisulfate 75 mg [PLAVIX 75 MG Tablet] 75 mg PO DAILY Metoprolol Succinate 50 mg [Toprol Xl 50 MG] 50 mg PO DAILY Furosemide 40 mg [Lasix 40 MG] 40 mg PO DAILY Rivaroxaban [Xarelto] 15 mg PO DAILY Sacubitril/Valsartan [Entresto 49 mg-51 mg Tablet] 1 each PO BID Insulin Glargine,Hum.rec.anlog [Lantus] 100 unit SQ LUNCH Insulin Lispro [Humalog] 100 unit SQ DAILY PRN PRN Reason: Hyperglycemia Discontinued Duloxetine HCl 30 mg [Cymbalta 30 MG Capsule] 60 mg PO DAILY Follow up with: DELGADO CISNEROS [Primary Care Provider] - 1 Week
[2019-11-12] MEDS ORDERED: Lantus Insulin SQ SCH (12:00)
== END 2019-11-12 12:10 | disposition home or self-care (01) ==
LOC: ED 07:07 → MED SURG 11:56
PROVIDERS: ADMIT Internal Medicine; ATTEND Internal Medicine
DX: R53.1 Weakness (principal); I10 Essential (primary) hypertension; E11.9 Type 2 diabetes mellitus without complications; I95.1 Orthostatic hypotension; S81.002A Unspecified open wound, left knee, initial encounter; R07.9 Chest pain, unspecified; R42 Dizziness and giddiness; E78.00 Pure hypercholesterolemia, unspecified; I73.9 Peripheral vascular disease, unspecified; Z91.81 History of falling; Z95.2 Presence of prosthetic heart valve; Z79.01 Long term (current) use of anticoagulants; Z95.1 Presence of aortocoronary bypass graft; Z95.0 Presence of cardiac pacemaker; Z79.899 Other long term (current) drug therapy
CPT/HCPCS: 36000; 36415; 70450; 71045; 72110; 72220; 80048; 80053; 81001; 82962; 83605; 83880; 84484; 85025; 87040; 93005; 93041; 93268; 96360; 96361; 99285; A9270-GY; G0378

== ENCOUNTER 2020-03-31 16:10 | Emergency (ER) | payer MEDICARE, OTHER ==
--- NOTE | 2020-03-31 17:34 | ERPHSYRPT ---
- History of Present Illness Time Seen by Provider: 03/31/20 16:38 Source: patient Exam Limitations: no limitations Patient Subjective Stated Complaint: Pt states "I have had a cough for a couple of days. I am not short of breath just coughing up thick yellow stuff." Triage Nursing Assessment: Pt presented alert and oriented X 3, skin pwd Pt ambulates with a slow shuffling gait. Pt able to speak in clear full sentences. Pt in no apparent respiratory distress. Physician History: 79 years old male with history of coronary artery disease status post CABG, hypertension, hyperlipidemia, congestive heart failure status post pacemaker placement, on Xarelto, COPD presented in the ER with chief complaint of cough for the last 2 days. Patient reports "I have been brought here against my available by the lady next door for evaluation of cough". Patient reports he slept in a cold 2 days ago with no blanket on and woke up with mild cough productive of clear to yellow thick sputum with no hemoptysis. Denies any fever chills or shortness of breath. No palpitations. Denies any chest pain. Denies any sick contact. Does have lower extremity swelling which is chronic with no worsening. Denies any dyspnea on exertion. Denies any other URI symptoms. Timing/Duration: day(s) (2) Cough Quality/Degree: mild, productive cough, sputum Possible Cause: no prior episodes Modifying Factors: Improves With: nothing Associated Symptoms: denies symptoms Allergies/Adverse Reactions: No Known Drug Allergies Allergy (Verified 11/11/19 07:34) Home Medications: Clopidogrel Bisulfate 75 mg [PLAVIX 75 MG Tablet] 75 mg PO DAILY 01/26/19 [History] Docusate Sodium 100 mg [Colace 100 MG] 100 mg PO DAILY 01/26/19 [History] Furosemide 40 mg [Lasix 40 MG] 40 mg PO DAILY 01/26/19 [History] Magnesium Oxide 400 mg [Mag-Ox 400] 400 mg PO DAILY 01/26/19 [History] Metoprolol Succinate 50 mg [Toprol Xl 50 MG] 50 mg PO DAILY 01/26/19 [History] Pravastatin Sodium [Pravachol] 40 mg PO DAILY 01/26/19 [History] Rivaroxaban [Xarelto] 15 mg PO DAILY 01/26/19 [History] Sacubitril/Valsartan [Entresto 49 mg-51 mg Tablet] 1 each PO BID 01/26/19 [History] Insulin Glargine,Hum.rec.anlog [Lantus] 100 unit SQ LUNCH 02/03/19 [History] Insulin Lispro [Humalog] 100 unit SQ DAILY PRN 02/03/19 [History] Hx Tetanus, Diphtheria Vaccination/Date Given: No Hx Influenza Vaccination/Date Given: Yes Hx Pneumococcal Vaccination/Date Given: Yes Immunizations Up to Date: Yes Travel Risk - International Travel Have you traveled outside of the country in past 3 weeks: No - Coronavirus Screening Symptoms: Cough: New Onset Close contact with a COVID-19 positive Pt in past 14-21 Days: No - Review of Systems Constitutional: No Symptoms Eyes: No Symptoms Ears, Nose, & Throat: No Symptoms Respiratory: Cough, No Dyspnea, No Wheezing Cardiac: Edema Abdominal/Gastrointestinal: No Symptoms Genitourinary Symptoms: No Symptoms Musculoskeletal: No Symptoms Neurological: No Symptoms Psychological: No Symptoms Endocrine: No Symptoms Hematologic/Lymphatic: No Symptoms Immunological/Allergic: No Symptoms - Past Medical History Pertinent Past Medical History: Yes Neurological History: Stroke ENT History: Cataracts Cardiac History: Congestive Heart Failure, Coronary Artery Disease, High Cholesterol, Hypertension Respiratory History: Sleep Apnea Endocrine Medical History: Diabetes Type II Musculoskeletal History: Arthritis GI Medical History: No Pertinent History History: No Pertinent History Psycho-Social History: No Pertinent History Male Reproductive Disorders: No Pertinent History - Past Surgical History Past Surgical History: Yes Neuro Surgical History: No Pertinent History Cardiac: CABG, Pacemaker Respiratory: No Pertinent History Gastrointestinal: No Pertinent History Genitourinary: No Pertinent History Musculoskeletal: Other Male Surgical History: No Pertinent History Other Surgical History: right knee, right shoulder surgery.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 - Social History Smoking Status: Former smoker Exposure to second hand smoke: Yes Drug Use: none Patient Lives Alone: No - Nursing Vital Signs Nursing Vital Signs: Initial Vital Signs Temperature 98.4 F 03/31/20 16:19 Pulse Rate 82 03/31/20 16:19 Respiratory Rate 22 03/31/20 16:19 Blood Pressure 89/33 03/31/20 16:19 O2 Sat by Pulse Oximetry 96 03/31/20 16:19 Pain Scale Pain Intensity 0 - Physical Exam General Appearance: no apparent distress, alert Eye Exam: PERRL/EOMI, eyes nml inspection Ears, Nose, Throat Exam: normal ENT inspection, pharynx normal Neck Exam: normal inspection, supple, full range of motion Respiratory Exam: normal breath sounds, lungs clear Cardiovascular Exam: regular rate/rhythm, normal heart sounds Back Exam: normal inspection Extremity Exam: pedal edema Neurologic Exam: alert, oriented x 3, cooperative Skin Exam: normal color SpO2 Interpretation: normal SpO2: 96 O2 Delivery: Room Air Ordered Tests: Active Orders 24 hr Category Date Time Status CHEST 2 VIEWS (PA AND LAT) Stat Exams 03/31/20 16:29 Completed Medication Summary Discontinued Medications Generic Name Dose Route Start Last Admin Trade Name Freq PRN Reason Stop Dose Admin Azithromycin 500 mg 03/31/20 17:35 Zithromax 250 Mg Tablet PO 03/31/20 17:36 STAT ONE - Progress Progress: re-examined Air Movement: good Progress Note: 03/31/20 17:33 79 years old is evaluated for cough for 2 days. No fever chills or shortness of breath. No chest pain. No signs of CHF exacerbation. Patient refused EKG and blood work. I have obtained x-rays which did not show any focal consolidations. I believe patient is developing bronchitis and because of his multiple other risk factor I would start him on Z-Frederic and recommended Mucinex to take as needed. Discussed signs symptoms of worsening needing return to ER which he seems understanding. Patient is not in any distress and nontoxic appearance. Blood Culture(s) Obtained: No Antibiotics given: Yes Counseled pt/family regarding: diagnosis, need for follow-up, rad results - Departure Departure Disposition: Home Clinical Impression: Bronchitis Condition: Stable Critical Care Time: No Referrals: NOEL PARIKH MD [Primary Care Provider] - (In 2 days for reevaluation) Instructions: Cough, Adult (DC) Additional Instructions: Use inhaler as needed. Use Mucinex for cough. Follow-up with your primary care physician for reevaluation. Return to ER for worsening. Prescriptions: Albuterol 8 gm Mdi Hfa [Ventolin Hfa MDI] 8 gm IH Q4H #1 hfa.aer.ad Azithromycin 250 mg [Zithromax 250 MG TABLET] 250 mg PO DAILY #4 tablet
[2020-03-31] MEDS ORDERED: Zithromax 250 MG TABLET PO ONE (17:35)
--- NOTE | 2020-03-31 17:45 | XRAY ---
Indication: Cough. Comparison: November 11, 2019. PA/lateral chest obtained. Lateral view limited due to respiration/motion artifact. Minimal right midlung subsegmental atelectasis/scarring. Remaining heart and lungs unremarkable again with cardiac valve replacement, CABG, and left pacemaker. Bony thorax intact again with mild degenerative changes. Impression: Nonacute chest with chronic features.
[2020-03-31] MEDS ORDERED: Zithromax 250 MG TABLET ONE (17:55)
[2020-03-31 18:03] VITALS: BP 114/56; PULSE 76; O2SAT 97
== END 2020-03-31 18:43 | disposition home or self-care (01) ==
LOC: ED 16:10
DX: J40 Bronchitis, not specified as acute or chronic (principal); I25.10 Atherosclerotic heart disease of native coronary artery without angina pectoris; I10 Essential (primary) hypertension; Z95.1 Presence of aortocoronary bypass graft; E78.5 Hyperlipidemia, unspecified; J44.9 Chronic obstructive pulmonary disease, unspecified; Z95.0 Presence of cardiac pacemaker; Z79.01 Long term (current) use of anticoagulants; Z79.899 Other long term (current) drug therapy
CPT/HCPCS: 71046; 99283; A9270-GY

== ENCOUNTER 2022-07-21 18:08 | Inpatient (IN) | payer MEDICARE, BC ==
[2022-07-21] MEDS ORDERED: Sodium Chloride 0.9% 1000 ML 1,000 ML IV SCH (19:00)
[2022-07-21 19:03] LABS: INFLUENZA A NEGATIVE (NEGATIVE); INFLUENZA B NEGATIVE (NEGATIVE); RESPIRATORY SYNCTIAL VIRUS NEGATIVE (Negative)
[2022-07-21 19:08] LABS: SARS-CoV-2 Xpert Express POSITIVE (NEGATIVE)
[2022-07-21 19:12] LABS: Absolute Neutrophil Ct (ANC) 6.47 x10^3/uL (1.4-6.9); Basophil (Absolute #) 0.07 x10^3/uL (0-0.4); Eosinophil % 0.2 % (0.00-5.0); Eosinophil (Absolute #) 0.02 x10^3/uL (0-0.5); Hematocrit 37.2 % (42-50); Lymphocyte (Absolute #) 1.35 x10^3/uL (1.0-4.6); Lymphocytes % 15.4 % (24.0-44.0); Mean Cell Volume 96.9 fL (78-100); Mean Corpuscular Hemoglobin 31.3 pg (26-32); Mean Corpuscular Hgb Concent. 32.3 g/dL (32-36); Mean Platelet Volume 9.9 fL (7.5-11.0); Monocyte (Absolute #) 0.83 x10^3/uL (0.0-1.3); Monocytes % 9.5 % (0.0-12.0); Neutrophil % 73.8 % (36.0-66.0); Platelet Count 209 x10^3/uL (150-450); Red Blood Count 3.84 x10^6/uL (4.1-5.6); Red Cell Distribution Width 12.8 % (11.5-14.0); White Blood Count 8.8 x10^3/uL (4.0-10.5)
--- NOTE | 2022-07-21 19:17 | ERPHSYRPT ---
- History of Present Illness Time Seen by Provider: 07/21/22 19:46 Source: patient Exam Limitations: no limitations Patient Subjective Stated Complaint: Patient c/o not feeling well for a few days. He states that he is tired, weak, and has a cough. Triage Nursing Assessment: Patient brought into the ED by ambulance. He is alert and oriented but drowsy; falling asleep during assessment. No SOB. A moist, non- productive cough is noted. Skin is hot to touch. Lungs clear. Physician History: Patient is a 81-year-old male presents to our ED via EMS for evaluation of generalized weakness. Patient has been feeling unwell for several days. Patient states he feels tired and weak. Patient states that walking is difficult because of weakness. Cough is dry nonproductive. No obvious fevers. Decreased p.o. No decreased urine output. No rash. Symptoms are constant. Symptoms are moderate in intensity. No specific worsening improving factors. Patient voices no other complaints or concerns at this time. Timing/Duration: day(s) (3 days ago) Severity: moderate Associated Symptoms: denies symptoms Allergies/Adverse Reactions: No Known Drug Allergies Allergy (Verified 07/21/22 18:10) Home Medications: Clopidogrel Bisulfate [PLAVIX Tablet] 75 mg PO DAILY 01/26/19 [History] Docusate Sodium 100 mg [Docusate Sodium 100 MG] 100 mg PO DAILY 01/26/19 [History] Furosemide 40 mg [Lasix 40 MG] 40 mg PO DAILY 01/26/19 [History] Magnesium Oxide 400 mg [Mag-Ox 400] 400 mg PO DAILY 01/26/19 [History] Metoprolol Succinate 50 mg [Toprol Xl 50 MG] 50 mg PO DAILY 01/26/19 [History] Pravastatin Sodium [Pravachol] 40 mg PO DAILY 01/26/19 [History] Rivaroxaban [Xarelto] 15 mg PO DAILY 01/26/19 [History] Sacubitril/Valsartan [Entresto 49 mg-51 mg Tablet] 1 each PO BID 01/26/19 [History] Insulin Glargine,Hum.rec.anlog [Lantus] 100 unit SQ LUNCH 02/03/19 [History] Insulin Lispro [Humalog] 100 unit SQ DAILY PRN 02/03/19 [History] Hx Tetanus, Diphtheria Vaccination/Date Given: Yes Hx Influenza Vaccination/Date Given: No Hx Pneumococcal Vaccination/Date Given: Yes Immunizations Up to Date: Yes Travel Risk - International Travel Have you traveled outside of the country in past 3 weeks: No - Coronavirus Screening Are you exhibiting any of the following symptoms?: Yes Symptoms: Fever, Cough: New Onset, Headaches/Body Aches/Fatigue Close contact with a COVID-19 positive Pt in past 14-21 Days: No - Vaccine Status Have you recieved a Covid-19 vaccination: Yes Drug Abuse Counselor: Moderna - Vaccination Dates Date of 2cond Vaccination (if applicable): 2020 - Review of Systems Constitutional: No Symptoms, No Fever, No Chills Eyes: No Symptoms Ears, Nose, & Throat: No Symptoms Respiratory: No Symptoms, No Cough, No Dyspnea Cardiac: No Symptoms, No Chest Pain, No Edema, No Syncope Abdominal/Gastrointestinal: No Symptoms, No Abdominal Pain, No Nausea, No Vomiting, No Diarrhea Genitourinary Symptoms: No Symptoms, No Dysuria Musculoskeletal: No Symptoms, No Back Pain, No Neck Pain Skin: No Rash Neurological: No Dizziness, No Focal Weakness, No Sensory Changes Psychological: No Symptoms Endocrine: No Symptoms Hematologic/Lymphatic: No Symptoms Immunological/Allergic: No Symptoms All Other Systems: Reviewed and Negative - Past Medical History Pertinent Past Medical History: Yes Neurological History: Stroke ENT History: Cataracts Cardiac History: Congestive Heart Failure, Coronary Artery Disease, High Cholesterol, Hypertension, Myocardial Infarction ([place]), Other Respiratory History: Sleep Apnea Endocrine Medical History: Diabetes Type II Musculoskeletal History: Arthritis GI Medical History: No Pertinent History History: No Pertinent History Psycho-Social History: No Pertinent History Male Reproductive Disorders: No Pertinent History - Past Surgical History Past Surgical History: Yes Neuro Surgical History: No Pertinent History Cardiac: CABG, Pacemaker Respiratory: No Pertinent History Gastrointestinal: No Pertinent History Genitourinary: No Pertinent History Musculoskeletal: Other Male Surgical History: No Pertinent History Other Surgical History: right knee, right shoulder surgery.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 - Social History Smoking Status: Former smoker Exposure to second hand smoke: Yes Drug Use: none Patient Lives Alone: Yes - Nursing Vital Signs Nursing Vital Signs: Initial Vital Signs Temperature 98.7 F 07/21/22 18:15 Pulse Rate 67 07/21/22 18:15 Respiratory Rate 17 07/21/22 18:15 Blood Pressure 120/43 07/21/22 18:15 O2 Sat by Pulse Oximetry 91 L 07/21/22 18:15 Pain Scale Pain Intensity 0 - Physical Exam General Appearance: no apparent distress, alert Eye Exam: PERRL/EOMI, eyes nml inspection Ears, Nose, Throat Exam: normal ENT inspection, TMs normal, pharynx normal, moist mucous membranes Neck Exam: normal inspection, non-tender, supple, full range of motion Respiratory Exam: normal breath sounds, lungs clear, airway intact, No respiratory distress Cardiovascular Exam: regular rate/rhythm, normal heart sounds, normal peripheral pulses Gastrointestinal/Abdomen Exam: soft, normal bowel sounds, No tenderness, No mass Back Exam: normal inspection, normal range of motion, No CVA tenderness, No vertebral tenderness Extremity Exam: normal inspection, normal range of motion, pelvis stable Neurologic Exam: alert, oriented x 3, cooperative, normal mood/affect, nml cerebellar function, nml station & gait, sensation nml, No motor deficits Skin Exam: normal color, warm, dry, No rash Lymphatic Exam: No adenopathy SpO2 Interpretation: normal SpO2: 89 O2 Delivery: Room Air - Course Nursing assessment & vital signs reviewed: Yes EKG Interpreted by Me: RATE (70 ventricular paced rhythm) - Radiology Exams Chest X-ray Interpretation: Interpreted by me (Clear lungs. Normal cardiac silhouette. History of CABG and pacemaker. Intact bony thorax) Ordered Tests: Active Orders 24 hr Category Date Time Status Junior Estimator STAT Care 07/21/22 18:59 Active EKG-ER Only STAT Care 07/21/22 18:59 Active IV Insertion STAT Care 07/21/22 18:59 Active Pulse Oximetry (ED) STAT Care 07/21/22 18:59 Active CHEST 1 VIEW (PORTABLE) Stat Exams 07/21/22 20:06 Taken BNP [NT PRO BNP] Stat Lab 07/21/22 22:23 Ordered CBC W DIFF Stat Lab 07/21/22 18:10 Completed CMP Stat Lab 07/21/22 18:10 Completed D-DIMER QUANTITATIVE Stat Lab 07/21/22 22:23 Ordered NT PRO BNP Stat Lab 07/21/22 18:10 Completed TROPONIN Q4H Lab 07/21/22 18:10 Completed TROPONIN Q4H Lab 07/21/22 23:00 Ordered TROPONIN Q4H Lab 07/22/22 03:00 Ordered UA W/RFX CULTURE Stat Lab 07/21/22 Ordered Medication Summary Generic Name Dose Route Start Last Admin Trade Name Maame PRN Reason Stop Dose Admin Sodium Chloride 1,000 mls @ 100 mls/hr 07/21/22 19:00 Sodium Chloride 0.9% 1000 Ml IV 08/20/22 18:59 .Q10H MARY Remdesivir 200 mg/ Sodium 250 mls @ 125 mls/hr 07/21/22 22:24 Chloride IV 07/22/22 00:23 ONCE ONE Discontinued Medications Generic Name Dose Route Start Last Admin Trade Name Freq PRN Reason Stop Dose Admin Enoxaparin Sodium 40 mg 07/21/22 22:24 Enoxaparin Sodium 40 Mg/0.4 Ml Syringe SQ 07/21/22 22:25 STAT ONE Lab/Rad Data: Laboratory Result Diagrams 07/21/22 18:10 07/21/22 18:10 Laboratory Results 07/21/22 07/21/22 07/21/22 Range/Units 18:19 18:10 18:10 WBC (4.0-10.5) x10^3/uL RBC (4.1-5.6) x10^6/uL Hgb (12.5-18.0) g/dL Hct (42-50) % MCV (78-100) fL MCH (26-32) pg MCHC (32-36) g/dL RDW (11.5-14.0) % Plt Count (150-450) x10^3/uL MPV (7.5-11.0) fL Gran % (36.0-66.0) % Immature Gran % (Auto) (0.00-0.4) % Nucleat RBC Rel Count (0.00-0.1) % Eos # (Auto) (0-0.5) x10^3/uL Immature Gran # (Auto) (0.00-0.03) x10^3u/L Absolute Lymphs (auto) (1.0-4.6) x10^3/uL Absolute Monos (auto) (0.0-1.3) x10^3/uL Absolute Nucleated RBC (0.00-0.01) x10^3u/L Lymphocytes % (24.0-44.0) % Monocytes % (0.0-12.0) % Eosinophils % (0.00-5.0) % Basophils % (0.0-0.4) % Absolute Granulocytes (1.4-6.9) x10^3/uL Basophils # (0-0.4) x10^3/uL Sodium 139 (137-145) mmol/L Potassium 4.2 (3.5-5.1) mmol/L Chloride 105 (98-107) mmol/L Carbon Dioxide 25 (22-30) mmol/L Anion Gap 12.7 (5-15) MEQ/L BUN 25 H (9-20) mg/dL Creatinine 1.77 H (0.66-1.25) mg/dL Estimated GFR 39.5 ML/MIN Glucose 53 L (74-106) mg/dL Calcium 8.9 (8.4-10.2) mg/dL Total Bilirubin 0.60 (0.2-1.3) mg/dL AST 26 (17-59) U/L ALT 15 (0-50) U/L Alkaline Phosphatase 71 (38-126) U/L Troponin I 0.013 (0.000-0.034) ng/mL NT-Pro-B Natriuret Pep 1180 (0-1800) pg/mL Serum Total Protein 8.7 H (6.3-8.2) g/dL Albumin 4.5 (3.5-5.0) g/dL Influenza Type A Ag NEGATIVE (NEGATIVE) Influenza Type B Ag NEGATIVE (NEGATIVE) RSV (PCR) NEGATIVE (Negative) SARS-CoV-2 (PCR) POSITIVE A (NEGATIVE) 07/21/22 Range/Units 18:10 WBC 8.8 (4.0-10.5) x10^3/uL RBC 3.84 L (4.1-5.6) x10^6/uL Hgb 12.0 L (12.5-18.0) g/dL Hct 37.2 L (42-50) % MCV 96.9 (78-100) fL MCH 31.3 (26-32) pg MCHC 32.3 (32-36) g/dL RDW 12.8 (11.5-14.0) % Plt Count 209 (150-450) x10^3/uL MPV 9.9 (7.5-11.0) fL Gran % 73.8 H (36.0-66.0) % Immature Gran % (Auto) 0.3 (0.00-0.4) % Nucleat RBC Rel Count 0.0 (0.00-0.1) % Eos # (Auto) 0.02 (0-0.5) x10^3/uL Immature Gran # (Auto) 0.03 (0.00-0.03) x10^3u/L Absolute Lymphs (auto) 1.35 (1.0-4.6) x10^3/uL Absolute Monos (auto) 0.83 (0.0-1.3) x10^3/uL Absolute Nucleated RBC 0.00 (0.00-0.01) x10^3u/L Lymphocytes % 15.4 L (24.0-44.0) % Monocytes % 9.5 (0.0-12.0) % Eosinophils % 0.2 (0.00-5.0) % Basophils % 0.8 (0.0-0.4) % Absolute Granulocytes 6.47 (1.4-6.9) x10^3/uL Basophils # 0.07 (0-0.4) x10^3/uL Sodium (137-145) mmol/L Potassium (3.5-5.1) mmol/L Chloride (98-107) mmol/L Carbon Dioxide (22-30) mmol/L Anion Gap (5-15) MEQ/L BUN (9-20) mg/dL Creatinine (0.66-1.25) mg/dL Estimated GFR ML/MIN Glucose (74-106) mg/dL Calcium (8.4-10.2) mg/dL Total Bilirubin (0.2-1.3) mg/dL AST (17-59) U/L ALT (0-50) U/L Alkaline Phosphatase (38-126) U/L Troponin I (0.000-0.034) ng/mL NT-Pro-B Natriuret Pep (0-1800) pg/mL Serum Total Protein (6.3-8.2) g/dL Albumin (3.5-5.0) g/dL Influenza Type A Ag (NEGATIVE) Influenza Type B Ag (NEGATIVE) RSV (PCR) (Negative) SARS-CoV-2 (PCR) (NEGATIVE) - Progress Progress: improved Progress Note: Case discussed with Dr. Guillen who accepts admission to observation. Patient is COVID-positive. He patient appears dehydrated. Patient states he is too weak to go home. Patient is a fall risk. Plan of care discussed with patient. He agrees to admission [facility] for further evaluation and treatment. Portions of this note were created with voice recognition technology. There may be grammatical, spelling, punctuation or sound alike errors 07/21/22 22:25 Counseled pt/family regarding: lab results, diagnosis, rad results - Departure Departure Disposition: Home Clinical Impression: COVID-19, General weakness, Dehydration Condition: Stable Critical Care Time: No Referrals: NOEL PARIKH MD [Primary Care Provider] - Follow up/PCP as directed
[2022-07-21 19:26] LABS: ALBUMIN 4.5 g/dL (3.5-5.0); ANION GAP 12.7 MEQ/L (5-15); BILIRUBIN,TOTAL 0.6 mg/dL (0.2-1.3); Calcium 8.9 mg/dL (8.4-10.2); Creatinine 1 1.77 mg/dL (0.66-1.25); EST GLOMERULAR FILTRATION RATE 39.5 ML/MIN; Potassium 4.2 mmol/L (3.5-5.1); Total Protein 8.7 g/dL (6.3-8.2)
[2022-07-21] MEDS ORDERED: REMDESIVIR 200 MG in Sodium Chloride 0.9% 250 ML 250 ML IV ONE (22:24)
[2022-07-21] MEDS ORDERED: Sodium Chloride 0.9% 1000 ML 1,000 ML ONE (22:24)
[2022-07-21] MEDS ORDERED: ENOXAPARIN SODIUM SQ ONE (22:24)
[2022-07-22] MEDS ORDERED: Sodium Chloride 0.9% 1000 ML 1,000 ML IV SCH (00:58)
[2022-07-22] MEDS ORDERED: FLUZONE HIGH-DOSE QUAD 2022-23 IM ONE (02:01)
[2022-07-22 03:24] LABS: Absolute Neutrophil Ct (ANC) 4.92 x10^3/uL (1.4-6.9); Basophil (Absolute #) 0.05 x10^3/uL (0-0.4); Eosinophil (Absolute #) 0 x10^3/uL (0-0.5); Hematocrit 36.2 % (42-50); Hemoglobin 11.3 g/dL (12.5-18.0); Lymphocyte (Absolute #) 0.71 x10^3/uL (1.0-4.6); Lymphocytes % 11.1 % (24.0-44.0); Mean Corpuscular Hemoglobin 31.2 pg (26-32); Mean Corpuscular Hgb Concent. 31.2 g/dL (32-36); Mean Platelet Volume 9.5 fL (7.5-11.0); Monocyte (Absolute #) 0.69 x10^3/uL (0.0-1.3); Monocytes % 10.8 % (0.0-12.0); Neutrophil % 77.1 % (36.0-66.0); Platelet Count 168 x10^3/uL (150-450); Red Blood Count 3.62 x10^6/uL (4.1-5.6); Red Cell Distribution Width 12.9 % (11.5-14.0); White Blood Count 6.4 x10^3/uL (4.0-10.5)
[2022-07-22 03:50] LABS: ALBUMIN 3.8 g/dL (3.5-5.0); ANION GAP 13.1 MEQ/L (5-15); BILIRUBIN,TOTAL 0.5 mg/dL (0.2-1.3); Creatinine 1 1.58 mg/dL (0.66-1.25); EST GLOMERULAR FILTRATION RATE 45.1 ML/MIN; Potassium 4.7 mmol/L (3.5-5.1); Total Protein 7.2 g/dL (6.3-8.2)
--- NOTE | 2022-07-22 08:43 | XRAY ---
Indication: Cough and short of breath. Comparison: March 31, 2020 Portable apical lordotic chest inflated without focal infiltrate, consolidation, or large effusion. Heart not enlarged again with CABG, cardiac valve replacement, and left pacemaker. Bony thorax intact again with mild osteopenia and degenerative changes. Impression: Continued nonacute chest with chronic features.
[2022-07-22] MEDS: Dextrose 5%-NS IV Solution 1000 ML 1,000 ML IV SCH ×2 (09:47→20:09)
[2022-07-22] MEDS ORDERED: NON-FORMULARY ITEM (Pravastatin Sodium [Pravachol] 40 MG Tablet) PO SCH (10:00)
[2022-07-22] MEDS ORDERED: NON-FORMULARY ITEM (Rivaroxaban [Xarelto] 15 MG Tablet) PO SCH (10:00)
[2022-07-22] MEDS: DECADRON 10MG INJ. IV SCH (10:36)
[2022-07-22] MEDS: ENTRESTO 49 MG-51 MG TABLET PO SCH ×2 (10:37→22:39)
[2022-07-22] MEDS: Toprol Xl 50 MG PO SCH (10:37)
[2022-07-22] MEDS: ZOCOR 20MG PO SCH (10:37)
[2022-07-22] MEDS: MAG-OX 400 PO SCH (10:37)
[2022-07-22] MEDS: PLAVIX Tablet PO SCH (10:37)
[2022-07-22] MEDS: XARELTO 10 MG TABLET PO SCH (10:37)
[2022-07-22] MEDS: Docusate Sodium 100 MG PO SCH (11:34)
--- NOTE | 2022-07-22 18:40 | PCM.HP ---
History of Present Illness - Chief Complaint Chief Complaint: COVID 19 History of Present Illness: is a 81 year old male pt of Dr. Burciaga' seen by me this morning at approx 0745. He has a hx CAD (hx CABG and NH), Renal failure, DM II, CHF, hyperlipidemia, NESS, oA, and HTN. He told ER staff he had 3d of cough, feeling tired and weak and was found to have Covid. His CXR is nonacute. WBC 8.8 on admission, 6.4 this morning. eGFR 45.1 today, 39.5 on admission. Blood sugar was 44 this morning. He tells me that he just felt sick yesterday morning, couldn't get up, and his visitor called the ambulance. Denies fever. Does admit to cough x 4d. Had D last p.m. no vomiting. This morning he is lying on his L side in bed, bed is flat. He is AAO x3. - Review of Systems Constitutional: Weakness Respiratory: Cough Abdominal/Gastrointestinal: Abdominal Pain (lower abd, with cough), Diarrhea All Other Systems: Reviewed and Negative Medications & Allergies Home Medications: Home Medication List Clopidogrel Bisulfate [PLAVIX Tablet] 75 mg PO DAILY 01/26/19 [History Confirmed 07/22/22] Docusate Sodium 100 mg [Docusate Sodium 100 MG] 100 mg PO DAILY 01/26/19 [History Confirmed 07/22/22] Magnesium Oxide 400 mg [Mag-Ox 400] 400 mg PO DAILY 01/26/19 [History Confirmed 07/22/22] Metoprolol Succinate 50 mg [Toprol Xl 50 MG] 50 mg PO DAILY 01/26/19 [History Confirmed 07/22/22] Pravastatin Sodium [Pravachol] 40 mg PO HS 01/26/19 [History Confirmed 07/22/22] Rivaroxaban [Xarelto] 15 mg PO DAILY 01/26/19 [History Confirmed 07/22/22] Sacubitril/Valsartan [Entresto 49 mg-51 mg Tablet] 1 each PO BID 01/26/19 [History Confirmed 07/22/22] Insulin Glargine,Hum.rec.anlog [Lantus] 100 unit SQ LUNCH 02/03/19 [History Confirmed 07/22/22] Insulin Lispro [Humalog] 100 unit SQ DAILY PRN 02/03/19 [History Confirmed 07/22/22] Allergies/Adverse Reactions: Allergies Allergy/AdvReac Type Severity Reaction Status Date / Time No Known Drug Allergies Allergy Verified 07/21/22 18:10 - Past Medical History Past Medical History: Yes Neurological History: Stroke ENT History: Cataracts Cardiac History: Congestive Heart Failure, Coronary Artery Disease, High Cholesterol, Hypertension, Myocardial Infarction (NH), Other Respiratory History: Sleep Apnea Endocrine Medical History: Diabetes Type II Musculoskelatal History: Arthritis GI Medical History: No Pertinent History History: No Pertinent History Pyscho-Social History: No Pertinent History Male Reproductive Disorders: No Pertinent History - Past Surgical History Past Surgical History: Yes Neuro Surgical History: No Pertinent History Cardiac History: CABG, Pacemaker Respiratory Surgery: No Pertinent History GI Surgical History: No Pertinent History Genitourinary Surgical Hx: No Pertinent History Musculskeletal Surgical Hx: Other Male Surgical History: No Pertinent History Other Surgical History: right knee, right shoulder surgery.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 - Social History Smoking Status: Former smoker Exposure to second hand smoke: No Alcohol: None Drug Use: none - Physical Exam Vital Signs: Vital Signs - 24 hr Temp Pulse Resp BP Pulse Ox 07/22/22 16:00 98.2 F 65 14 133/83 97 07/22/22 14:04 92 L 07/22/22 12:00 97.8 F 68 17 115/74 95 07/22/22 08:00 98.4 F 73 18 171/68 95 07/22/22 06:00 18 07/22/22 04:00 97.2 F 68 18 145/72 96 07/22/22 03:48 18 07/22/22 02:35 91 L 07/22/22 02:02 97.1 F 64 18 125/60 96 07/22/22 00:37 61 18 135/49 98 07/21/22 23:00 90 18 94 L 07/21/22 22:39 89 L 07/21/22 22:00 94 H 18 137/55 96 07/21/22 20:53 89 18 97 07/21/22 19:29 63 23 123/88 96 General Appearance: no apparent distress, alert, other (lying quietly on his L side) Neurologic Exam: oriented x 3, cooperative Eye Exam: eyes nml inspection Ears, Nose, Throat Exam: moist mucous membranes Neck Exam: normal inspection Respiratory Exam: normal breath sounds, wheezing (faint wheeze), No crackles/rales, No rhonchi Cardiovascular Exam: regular rate/rhythm, normal heart sounds, No murmur Gastrointestinal/Abdomen Exam: soft, normal bowel sounds, tenderness (grimaces as I palpate his abdomen but denies pain) Results - Labs Lab/Micro Results: Lab Results-Last 24 Hours 07/21/22 07/21/22 07/21/22 Range/Units 18:10 18:10 18:10 WBC 8.8 (4.0-10.5) x10^3/uL RBC 3.84 L (4.1-5.6) x10^6/uL Hgb 12.0 L (12.5-18.0) g/dL Hct 37.2 L (42-50) % MCV 96.9 (78-100) fL MCH 31.3 (26-32) pg MCHC 32.3 (32-36) g/dL RDW 12.8 (11.5-14.0) % Plt Count 209 (150-450) x10^3/uL MPV 9.9 (7.5-11.0) fL Gran % 73.8 H (36.0-66.0) % Immature Gran % (Auto) 0.3 (0.00-0.4) % Nucleat RBC Rel Count 0.0 (0.00-0.1) % Eos # (Auto) 0.02 (0-0.5) x10^3/uL Immature Gran # (Auto) 0.03 (0.00-0.03) x10^3u/L Absolute Lymphs (auto) 1.35 (1.0-4.6) x10^3/uL Absolute Monos (auto) 0.83 (0.0-1.3) x10^3/uL Absolute Nucleated RBC 0.00 (0.00-0.01) x10^3u/L Lymphocytes % 15.4 L (24.0-44.0) % Monocytes % 9.5 (0.0-12.0) % Eosinophils % 0.2 (0.00-5.0) % Basophils % 0.8 (0.0-0.4) % Absolute Granulocytes 6.47 (1.4-6.9) x10^3/uL Basophils # 0.07 (0-0.4) x10^3/uL D-Dimer (0.0-0.50) mg/L Sodium 139 (137-145) mmol/L Potassium 4.2 (3.5-5.1) mmol/L Chloride 105 (98-107) mmol/L Carbon Dioxide 25 (22-30) mmol/L Anion Gap 12.7 (5-15) MEQ/L BUN 25 H (9-20) mg/dL Creatinine 1.77 H (0.66-1.25) mg/dL Estimated GFR 39.5 ML/MIN Glucose 53 L (74-106) mg/dL POC Glucometer (74 to 106) mg/dL Hemoglobin A1c (4.5-6.0) % Calcium 8.9 (8.4-10.2) mg/dL Total Bilirubin 0.60 (0.2-1.3) mg/dL AST 26 (17-59) U/L ALT 15 (0-50) U/L Alkaline Phosphatase 71 (38-126) U/L Troponin I 0.013 (0.000-0.034) ng/mL NT-Pro-B Natriuret Pep 1180 (0-1800) pg/mL Serum Total Protein 8.7 H (6.3-8.2) g/dL Albumin 4.5 (3.5-5.0) g/dL Influenza Type A Ag (NEGATIVE) Influenza Type B Ag (NEGATIVE) RSV (PCR) (Negative) SARS-CoV-2 (PCR) (NEGATIVE) 07/21/22 07/21/22 07/21/22 Range/Units 18:19 23:25 Unknown WBC (4.0-10.5) x10^3/uL RBC (4.1-5.6) x10^6/uL Hgb (12.5-18.0) g/dL Hct (42-50) % MCV (78-100) fL MCH (26-32) pg MCHC (32-36) g/dL RDW (11.5-14.0) % Plt Count (150-450) x10^3/uL MPV (7.5-11.0) fL Gran % (36.0-66.0) % Immature Gran % (Auto) (0.00-0.4) % Nucleat RBC Rel Count (0.00-0.1) % Eos # (Auto) (0-0.5) x10^3/uL Immature Gran # (Auto) (0.00-0.03) x10^3u/L Absolute Lymphs (auto) (1.0-4.6) x10^3/uL Absolute Monos (auto) (0.0-1.3) x10^3/uL Absolute Nucleated RBC (0.00-0.01) x10^3u/L Lymphocytes % (24.0-44.0) % Monocytes % (0.0-12.0) % Eosinophils % (0.00-5.0) % Basophils % (0.0-0.4) % Absolute Granulocytes (1.4-6.9) x10^3/uL Basophils # (0-0.4) x10^3/uL D-Dimer 0.51 H (0.0-0.50) mg/L Sodium (137-145) mmol/L Potassium (3.5-5.1) mmol/L Chloride (98-107) mmol/L Carbon Dioxide (22-30) mmol/L Anion Gap (5-15) MEQ/L BUN (9-20) mg/dL Creatinine (0.66-1.25) mg/dL Estimated GFR ML/MIN Glucose (74-106) mg/dL POC Glucometer (74 to 106) mg/dL Hemoglobin A1c (4.5-6.0) % Calcium (8.4-10.2) mg/dL Total Bilirubin (0.2-1.3) mg/dL AST (17-59) U/L ALT (0-50) U/L Alkaline Phosphatase (38-126) U/L Troponin I 0.019 (0.000-0.034) ng/mL NT-Pro-B Natriuret Pep (0-1800) pg/mL Serum Total Protein (6.3-8.2) g/dL Albumin (3.5-5.0) g/dL Influenza Type A Ag NEGATIVE (NEGATIVE) Influenza Type B Ag NEGATIVE (NEGATIVE) RSV (PCR) NEGATIVE (Negative) SARS-CoV-2 (PCR) POSITIVE A (NEGATIVE) 07/22/22 07/22/22 07/22/22 Range/Units 03:00 03:00 03:00 WBC 6.4 (4.0-10.5) x10^3/uL RBC 3.62 L (4.1-5.6) x10^6/uL Hgb 11.3 L (12.5-18.0) g/dL Hct 36.2 L (42-50) % MCV 100.0 (78-100) fL MCH 31.2 (26-32) pg MCHC 31.2 L (32-36) g/dL RDW 12.9 (11.5-14.0) % Plt Count 168 (150-450) x10^3/uL MPV 9.5 (7.5-11.0) fL Gran % 77.1 H (36.0-66.0) % Immature Gran % (Auto) 0.2 (0.00-0.4) % Nucleat RBC Rel Count 0.0 (0.00-0.1) % Eos # (Auto) 0 (0-0.5) x10^3/uL Immature Gran # (Auto) 0.01 (0.00-0.03) x10^3u/L Absolute Lymphs (auto) 0.71 L (1.0-4.6) x10^3/uL Absolute Monos (auto) 0.69 (0.0-1.3) x10^3/uL Absolute Nucleated RBC 0.00 (0.00-0.01) x10^3u/L Lymphocytes % 11.1 L (24.0-44.0) % Monocytes % 10.8 (0.0-12.0) % Eosinophils % 0.0 (0.00-5.0) % Basophils % 0.8 (0.0-0.4) % Absolute Granulocytes 4.92 (1.4-6.9) x10^3/uL Basophils # 0.05 (0-0.4) x10^3/uL D-Dimer (0.0-0.50) mg/L Sodium 136 L (137-145) mmol/L Potassium 4.7 (3.5-5.1) mmol/L Chloride 105 (98-107) mmol/L Carbon Dioxide 23 (22-30) mmol/L Anion Gap 13.1 (5-15) MEQ/L BUN 26 H (9-20) mg/dL Creatinine 1.58 H (0.66-1.25) mg/dL Estimated GFR 45.1 ML/MIN Glucose 44 L* (74-106) mg/dL POC Glucometer (74 to 106) mg/dL Hemoglobin A1c (4.5-6.0) % Calcium 8.0 L (8.4-10.2) mg/dL Total Bilirubin 0.50 (0.2-1.3) mg/dL AST 79 H (17-59) U/L ALT 36 (0-50) U/L Alkaline Phosphatase 70 (38-126) U/L Troponin I 0.014 (0.000-0.034) ng/mL NT-Pro-B Natriuret Pep (0-1800) pg/mL Serum Total Protein 7.2 (6.3-8.2) g/dL Albumin 3.8 (3.5-5.0) g/dL Influenza Type A Ag (NEGATIVE) Influenza Type B Ag (NEGATIVE) RSV (PCR) (Negative) SARS-CoV-2 (PCR) (NEGATIVE) 07/22/22 07/22/22 07/22/22 Range/Units 04:42 05:16 06:00 WBC (4.0-10.5) x10^3/uL RBC (4.1-5.6) x10^6/uL Hgb (12.5-18.0) g/dL Hct (42-50) % MCV (78-100) fL MCH (26-32) pg MCHC (32-36) g/dL RDW (11.5-14.0) % Plt Count (150-450) x10^3/uL MPV (7.5-11.0) fL Gran % (36.0-66.0) % Immature Gran % (Auto) (0.00-0.4) % Nucleat RBC Rel Count (0.00-0.1) % Eos # (Auto) (0-0.5) x10^3/uL Immature Gran # (Auto) (0.00-0.03) x10^3u/L Absolute Lymphs (auto) (1.0-4.6) x10^3/uL Absolute Monos (auto) (0.0-1.3) x10^3/uL Absolute Nucleated RBC (0.00-0.01) x10^3u/L Lymphocytes % (24.0-44.0) % Monocytes % (0.0-12.0) % Eosinophils % (0.00-5.0) % Basophils % (0.0-0.4) % Absolute Granulocytes (1.4-6.9) x10^3/uL Basophils # (0-0.4) x10^3/uL D-Dimer (0.0-0.50) mg/L Sodium (137-145) mmol/L Potassium (3.5-5.1) mmol/L Chloride (98-107) mmol/L Carbon Dioxide (22-30) mmol/L Anion Gap (5-15) MEQ/L BUN (9-20) mg/dL Creatinine (0.66-1.25) mg/dL Estimated GFR ML/MIN Glucose (74-106) mg/dL POC Glucometer 57 L 62 L 84 (74 to 106) mg/dL Hemoglobin A1c (4.5-6.0) % Calcium (8.4-10.2) mg/dL Total Bilirubin (0.2-1.3) mg/dL AST (17-59) U/L ALT (0-50) U/L Alkaline Phosphatase (38-126) U/L Troponin I (0.000-0.034) ng/mL NT-Pro-B Natriuret Pep (0-1800) pg/mL Serum Total Protein (6.3-8.2) g/dL Albumin (3.5-5.0) g/dL Influenza Type A Ag (NEGATIVE) Influenza Type B Ag (NEGATIVE) RSV (PCR) (Negative) SARS-CoV-2 (PCR) (NEGATIVE) 07/22/22 07/22/22 07/22/22 Range/Units 07:32 10:42 11:46 WBC (4.0-10.5) x10^3/uL RBC (4.1-5.6) x10^6/uL Hgb (12.5-18.0) g/dL Hct (42-50) % MCV (78-100) fL MCH (26-32) pg MCHC (32-36) g/dL RDW (11.5-14.0) % Plt Count (150-450) x10^3/uL MPV (7.5-11.0) fL Gran % (36.0-66.0) % Immature Gran % (Auto) (0.00-0.4) % Nucleat RBC Rel Count (0.00-0.1) % Eos # (Auto) (0-0.5) x10^3/uL Immature Gran # (Auto) (0.00-0.03) x10^3u/L Absolute Lymphs (auto) (1.0-4.6) x10^3/uL Absolute Monos (auto) (0.0-1.3) x10^3/uL Absolute Nucleated RBC (0.00-0.01) x10^3u/L Lymphocytes % (24.0-44.0) % Monocytes % (0.0-12.0) % Eosinophils % (0.00-5.0) % Basophils % (0.0-0.4) % Absolute Granulocytes (1.4-6.9) x10^3/uL Basophils # (0-0.4) x10^3/uL D-Dimer (0.0-0.50) mg/L Sodium (137-145) mmol/L Potassium (3.5-5.1) mmol/L Chloride (98-107) mmol/L Carbon Dioxide (22-30) mmol/L Anion Gap (5-15) MEQ/L BUN (9-20) mg/dL Creatinine (0.66-1.25) mg/dL Estimated GFR ML/MIN Glucose (74-106) mg/dL POC Glucometer 93 90 (74 to 106) mg/dL Hemoglobin A1c 7.64 H (4.5-6.0) % Calcium (8.4-10.2) mg/dL Total Bilirubin (0.2-1.3) mg/dL AST (17-59) U/L ALT (0-50) U/L Alkaline Phosphatase (38-126) U/L Troponin I (0.000-0.034) ng/mL NT-Pro-B Natriuret Pep (0-1800) pg/mL Serum Total Protein (6.3-8.2) g/dL Albumin (3.5-5.0) g/dL Influenza Type A Ag (NEGATIVE) Influenza Type B Ag (NEGATIVE) RSV (PCR) (Negative) SARS-CoV-2 (PCR) (NEGATIVE) 07/22/22 Range/Units 17:10 WBC (4.0-10.5) x10^3/uL RBC (4.1-5.6) x10^6/uL Hgb (12.5-18.0) g/dL Hct (42-50) % MCV (78-100) fL MCH (26-32) pg MCHC (32-36) g/dL RDW (11.5-14.0) % Plt Count (150-450) x10^3/uL MPV (7.5-11.0) fL Gran % (36.0-66.0) % Immature Gran % (Auto) (0.00-0.4) % Nucleat RBC Rel Count (0.00-0.1) % Eos # (Auto) (0-0.5) x10^3/uL Immature Gran # (Auto) (0.00-0.03) x10^3u/L Absolute Lymphs (auto) (1.0-4.6) x10^3/uL Absolute Monos (auto) (0.0-1.3) x10^3/uL Absolute Nucleated RBC (0.00-0.01) x10^3u/L Lymphocytes % (24.0-44.0) % Monocytes % (0.0-12.0) % Eosinophils % (0.00-5.0) % Basophils % (0.0-0.4) % Absolute Granulocytes (1.4-6.9) x10^3/uL Basophils # (0-0.4) x10^3/uL D-Dimer (0.0-0.50) mg/L Sodium (137-145) mmol/L Potassium (3.5-5.1) mmol/L Chloride (98-107) mmol/L Carbon Dioxide (22-30) mmol/L Anion Gap (5-15) MEQ/L BUN (9-20) mg/dL Creatinine (0.66-1.25) mg/dL Estimated GFR ML/MIN Glucose (74-106) mg/dL POC Glucometer 355 H (74 to 106) mg/dL Hemoglobin A1c (4.5-6.0) % Calcium (8.4-10.2) mg/dL Total Bilirubin (0.2-1.3) mg/dL AST (17-59) U/L ALT (0-50) U/L Alkaline Phosphatase (38-126) U/L Troponin I (0.000-0.034) ng/mL NT-Pro-B Natriuret Pep (0-1800) pg/mL Serum Total Protein (6.3-8.2) g/dL Albumin (3.5-5.0) g/dL Influenza Type A Ag (NEGATIVE) Influenza Type B Ag (NEGATIVE) RSV (PCR) (Negative) SARS-CoV-2 (PCR) (NEGATIVE) Accuchecks Date 07/22/22 Date 07/22/22 Date 07/22/22 Time 17:31 Time 12:35 Time 08:35 - Radiology Impressions Radiology Exams & Impressions: Radiology Procedures Category Date Time Status CHEST 1 VIEW (PORTABLE) Stat Exams 07/21/22 20:06 Completed - Other Procedures and Tests Respiratory Therapy 07/22/22 02:34 Oxygen Nasal Cannula 2 lpm Assessment/Plan (1) COVID-19 Current Visit: Yes Status: Acute Assessment & Plan: He had a dose of remdesivir in ER, apparently; restarted today. Started dexamethasone. He is on xarelto for his heart valve. Code(s): U07.1 - COVID-19 (2) Dehydration Current Visit: Yes Status: Acute Code(s): E86.0 - DEHYDRATION (3) General weakness Current Visit: Yes Status: Acute Code(s): R53.1 - WEAKNESS (4) Coronary artery disease Current Visit: No Status: Chronic Qualifiers: Coronary Disease-Associated Artery/Lesion type: bypass graft [place] vs. transplanted heart: redding heart Associated angina: with stable angina Qualified Code(s): I25.708 - Atherosclerosis of coronary artery bypass graft(s), unspecified, with other forms of angina pectoris Assessment & Plan: On plavix. Code(s): I25.10 - ATHSCL HEART DISEASE OF [place] CORONARY ARTERY W/O ANG PCTRS (5) artificial aortic valve Current Visit: No Status: Chronic (6) Diabetes mellitus Current Visit: No Status: Chronic Qualifiers: Diabetes mellitus type: type 2 Diabetes mellitus detention insulin use: wit h lobsterman use Diabetes mellitus complication status: with circulatory complication Diabetes mellitus complication detail: with peripheral angiopathy without gangrene Qualified Code(s): E11.51 - Type 2 diabetes mellitus with diabetic peripheral angiopathy without gangrene; Z79.4 - parts counterman (current) use of insulin Assessment & Plan: with hypoglycemia this morning; I suspect he has not been eating well. Holding lantus; ok to cover with sliding scale. Code(s): E11.9 - TYPE 2 DIABETES MELLITUS WITHOUT COMPLICATIONS
[2022-07-22 18:41] LABS: Appearance CLEAR (CLEAR); Bilirubin NEGATIVE (NEGATIVE); Dipstick done @ ? MAIN LAB; Glucose 100 mg/dL (NEGATIVE); Ketones NEGATIVE (NEGATIVE); Nitrite NEGATIVE (NEGATIVE); Ph 5.5 (5-6); Protein,Urine Dip 30 (Negative); RBC NEGATIVE Ery/ul (0-5); Specific Gravity 1.025 (1.005-1.025); Urobilinogen 0.2 mg/dL (0-1)
[2022-07-22 18:49] LABS: RBC 0-2 /HPF (0-2)
[2022-07-22 18:50] LABS: Urine Cultured Indicated? NO
[2022-07-22] MEDS: HUMALOG SQ PRN (22:40)
[2022-07-22] MEDS: REMDESIVIR 100 MG in Sodium Chloride 100ML MINI-BAG PLUS 100 ML IV SCH (22:41)
[2022-07-23] MEDS ORDERED: TYLENOL 325 MG PO PRN (09:34)
[2022-07-23] MEDS ORDERED: Zofran 4 MG/2 ML VIAL IV PRN (09:34)
--- NOTE | 2022-07-23 09:34 | PCM.NOTE ---
Date and Time: 07/23/22930 Subjective Assessment: patient denies shortness of breath, he is tolerating po. currently requiring low level oxygen via NC. Objective Exam General Appearance: no apparent distress, obese Neurologic Exam: alert, oriented x 3, cooperative Respiratory Exam: rhonchi Cardiovascular Exam: regular rate/rhythm, normal heart sounds Gastrointestinal/Abdomen Exam: soft, No tenderness, No mass Extremity Exam: normal inspection, normal range of motion OBJECTIVE DATA Vital Signs: Vital Signs - 24 hr Temp Pulse Resp BP Pulse Ox 07/23/22 07:35 97.7 F 62 17 123/56 92 L 07/23/22 07:30 92 L 07/23/22 06:00 20 07/23/22 04:00 97.7 F 67 20 131/55 100 07/23/22 01:45 22 07/23/22 00:00 98.8 F 60 20 129/58 93 L 07/22/22 22:00 22 07/22/22 20:30 94 L 07/22/22 20:00 98.2 F 61 22 131/60 94 L 07/22/22 16:00 98.2 F 65 14 133/83 97 07/22/22 14:04 92 L 07/22/22 12:00 97.8 F 68 17 115/74 95 Pain Assessment - Last Documented Pain Intensity 0 Intake and Output: Intake & Output 07/20/22 07/21/22 07/22/22 07/23/22 11:59 11:59 11:59 11:59 Intake Total 1220 2479 Balance 1220 2479 Weight 136.8 kg Lab Results: Lab Results-Last 24 Hours 07/22/22 07/22/22 07/22/22 Range/Units 10:42 11:46 17:10 POC Glucometer 90 355 H (74 to 106) mg/dL Hemoglobin A1c 7.64 H (4.5-6.0) % Urinalys Dipstick Clnc Urine Color (YELLOW) Urine Appearance (CLEAR) Urine pH (5-6) Ur Specific [place] (1.005-1.025) POC Urine Protein Conf (Negative) Urine Ketones (NEGATIVE) Urine Nitrite (NEGATIVE) Urine Bilirubin (NEGATIVE) Urine Urobilinogen (0-1) mg/dL Urine Leukocytes (NEGATIVE) Urine WBC (Auto) (0-5) /HPF Urine RBC (Auto) (0-2) /HPF U Epithel Cells (Auto) (FEW) /HPF Urine Bacteria (Auto) (NEGATIVE) /HPF Urine RBC (0-5) Rigoberto/ul Ur Culture Indicated? Urine Glucose (NEGATIVE) mg/dL 07/22/22 07/22/22 07/23/22 Range/Units 18:03 21:40 06:56 POC Glucometer 341 H 191 H (74 to 106) mg/dL Hemoglobin A1c (4.5-6.0) % Urinalys Dipstick Clnc MAIN LAB Urine Color YELLOW (YELLOW) Urine Appearance CLEAR (CLEAR) Urine pH 5.5 (5-6) Ur Specific [place] 1.025 (1.005-1.025) POC Urine Protein Conf 30 A (Negative) Urine Ketones NEGATIVE (NEGATIVE) Urine Nitrite NEGATIVE (NEGATIVE) Urine Bilirubin NEGATIVE (NEGATIVE) Urine Urobilinogen 0.2 (0-1) mg/dL Urine Leukocytes TRACE A (NEGATIVE) Urine WBC (Auto) 3-5 A (0-5) /HPF Urine RBC (Auto) 0-2 (0-2) /HPF U Epithel Cells (Auto) NONE (FEW) /HPF Urine Bacteria (Auto) NONE (NEGATIVE) /HPF Urine RBC NEGATIVE (0-5) Rigoberto/ul Ur Culture Indicated? NO Urine Glucose 100 A (NEGATIVE) mg/dL Radiology Exams: Radiology Procedures Category Date Time Status CHEST 1 VIEW (PORTABLE) Stat Exams 07/21/22 20:06 Completed Multi-Disciplinary Progress Notes: Multi-Disciplinary Progress Notes 07/23/22 04:57 Respiratory Note by Namrata Devlin Patient's SpO2 was 99% on 1.5L. RT weaned O2 to room air. Patient's SpO2 dropped to 87% on room air. O2 was increased back to 2L, SpO2 increased to 95% on 2L. Initialized on 07/23/22 04:57 - END OF NOTE Assessment/Plan (1) COVID-19 Current Visit: Yes Status: Acute Assessment & Plan: continue remdesivir, dexamethasone and supportive care. code status SCO, covered with xarelto Code(s): U07.1 - COVID-19 (2) CHF (congestive heart failure) Current Visit: Yes Status: Acute Assessment & Plan: lock fluids, concern for impending volume overload. continue entresto Code(s): I50.9 - HEART FAILURE, UNSPECIFIED (3) Dehydration Current Visit: Yes Status: Acute Assessment & Plan: appears euvolemic at this time Code(s): E86.0 - DEHYDRATION
[2022-07-23] MEDS: MAG-OX 400 PO SCH (10:59)
[2022-07-23] MEDS: Docusate Sodium 100 MG PO SCH (10:59)
[2022-07-23] MEDS: DECADRON 10MG INJ. IV SCH (10:59)
[2022-07-23] MEDS: XARELTO 10 MG TABLET PO SCH (10:59)
[2022-07-23] MEDS: PLAVIX Tablet PO SCH (10:59)
[2022-07-23] MEDS: Toprol Xl 50 MG PO SCH (10:59)
[2022-07-23] MEDS: ZOCOR 20MG PO SCH (11:01)
[2022-07-23] MEDS: ENTRESTO 49 MG-51 MG TABLET PO SCH ×2 (11:01→22:32)
[2022-07-23] MEDS: HUMALOG SQ PRN ×3 (12:48→22:33)
[2022-07-23] MEDS: REMDESIVIR 100 MG in Sodium Chloride 100ML MINI-BAG PLUS 100 ML IV SCH (22:33)
[2022-07-24 05:39] LABS: Absolute Neutrophil Ct (ANC) 9.55 x10^3/uL (1.4-6.9); Basophil (Absolute #) 0.01 x10^3/uL (0-0.4); Eosinophil (Absolute #) 0 x10^3/uL (0-0.5); Hematocrit 31.6 % (42-50); Hemoglobin 9.9 g/dL (12.5-18.0); Lymphocyte (Absolute #) 0.75 x10^3/uL (1.0-4.6); Lymphocytes % 6.9 % (24.0-44.0); Mean Cell Volume 99.4 fL (78-100); Mean Corpuscular Hemoglobin 31.1 pg (26-32); Mean Corpuscular Hgb Concent. 31.3 g/dL (32-36); Mean Platelet Volume 10.1 fL (7.5-11.0); Monocyte (Absolute #) 0.54 x10^3/uL (0.0-1.3); Monocytes % 4.9 % (0.0-12.0); Neutrophil % 87.4 % (36.0-66.0); Platelet Count 183 x10^3/uL (150-450); Red Blood Count 3.18 x10^6/uL (4.1-5.6); Red Cell Distribution Width 13.2 % (11.5-14.0); White Blood Count 10.9 x10^3/uL (4.0-10.5)
[2022-07-24 05:53] LABS: ANION GAP 12.1 MEQ/L (5-15); Calcium 7.8 mg/dL (8.4-10.2); Creatinine 1 1.65 mg/dL (0.66-1.25); EST GLOMERULAR FILTRATION RATE 42.9 ML/MIN; Potassium 5.2 mmol/L (3.5-5.1)
--- NOTE | 2022-07-24 09:02 | PCM.NOTE ---
Date and Time: 07/24/22 0900 Subjective Assessment: cough seems some better. he is discouraged, wants to shave and get a shower. no other new complaints Objective Exam General Appearance: no apparent distress Neurologic Exam: alert, oriented x 3 Respiratory Exam: diminished breath sounds, rhonchi, No respiratory distress Cardiovascular Exam: regular rate/rhythm, normal heart sounds Gastrointestinal/Abdomen Exam: soft, No tenderness, No mass Extremity Exam: normal inspection, normal range of motion OBJECTIVE DATA Vital Signs: Vital Signs - 24 hr Temp Pulse Resp BP Pulse Ox 07/24/22 08:00 98.4 F 62 19 142/62 94 L 07/24/22 06:13 94 L 07/24/22 06:00 26 H 07/24/22 04:00 98.1 F 61 26 H 99/50 91 L 07/24/22 02:00 16 07/24/22 00:00 16 07/23/22 23:56 97.6 F 60 16 135/63 95 07/23/22 23:20 91 L 07/23/22 22:00 16 07/23/22 20:00 20 07/23/22 19:42 98.0 F 65 20 145/63 91 L 07/23/22 17:55 17 07/23/22 16:00 17 07/23/22 14:00 17 07/23/22 12:00 97.5 F 86 17 123/59 92 L 07/23/22 10:00 17 Pain Assessment - Last Documented Pain Intensity 0 Intake and Output: Intake & Output 07/21/22 07/22/22 07/23/22 07/24/22 11:59 11:59 11:59 11:59 Intake Total 1220 2959 2160 Balance 1220 2959 2160 Weight 136.8 kg Lab Results: Lab Results-Last 24 Hours 07/23/22 07/23/22 07/23/22 Range/Units 11:52 16:40 21:56 WBC (4.0-10.5) x10^3/uL RBC (4.1-5.6) x10^6/uL Hgb (12.5-18.0) g/dL Hct (42-50) % MCV (78-100) fL MCH (26-32) pg MCHC (32-36) g/dL RDW (11.5-14.0) % Plt Count (150-450) x10^3/uL MPV (7.5-11.0) fL Gran % (36.0-66.0) % Immature Gran % (Auto) (0.00-0.4) % Nucleat RBC Rel Count (0.00-0.1) % Eos # (Auto) (0-0.5) x10^3/uL Immature Gran # (Auto) (0.00-0.03) x10^3u/L Absolute Lymphs (auto) (1.0-4.6) x10^3/uL Absolute Monos (auto) (0.0-1.3) x10^3/uL Absolute Nucleated RBC (0.00-0.01) x10^3u/L Lymphocytes % (24.0-44.0) % Monocytes % (0.0-12.0) % Eosinophils % (0.00-5.0) % Basophils % (0.0-0.4) % Absolute Granulocytes (1.4-6.9) x10^3/uL Basophils # (0-0.4) x10^3/uL Sodium (137-145) mmol/L Potassium (3.5-5.1) mmol/L Chloride (98-107) mmol/L Carbon Dioxide (22-30) mmol/L Anion Gap (5-15) MEQ/L BUN (9-20) mg/dL Creatinine (0.66-1.25) mg/dL Estimated GFR ML/MIN Glucose (74-106) mg/dL POC Glucometer 208 H 307 H 293 H (74 to 106) mg/dL Calcium (8.4-10.2) mg/dL 07/24/22 07/24/22 07/24/22 Range/Units 05:35 05:35 07:11 WBC 10.9 H (4.0-10.5) x10^3/uL RBC 3.18 L (4.1-5.6) x10^6/uL Hgb 9.9 L (12.5-18.0) g/dL Hct 31.6 L (42-50) % MCV 99.4 (78-100) fL MCH 31.1 (26-32) pg MCHC 31.3 L (32-36) g/dL RDW 13.2 (11.5-14.0) % Plt Count 183 (150-450) x10^3/uL MPV 10.1 (7.5-11.0) fL Gran % 87.4 H (36.0-66.0) % Immature Gran % (Auto) 0.7 H (0.00-0.4) % Nucleat RBC Rel Count 0.0 (0.00-0.1) % Eos # (Auto) 0 (0-0.5) x10^3/uL Immature Gran # (Auto) 0.08 H (0.00-0.03) x10^3u/L Absolute Lymphs (auto) 0.75 L (1.0-4.6) x10^3/uL Absolute Monos (auto) 0.54 (0.0-1.3) x10^3/uL Absolute Nucleated RBC 0.00 (0.00-0.01) x10^3u/L Lymphocytes % 6.9 L (24.0-44.0) % Monocytes % 4.9 (0.0-12.0) % Eosinophils % 0.0 (0.00-5.0) % Basophils % 0.1 (0.0-0.4) % Absolute Granulocytes 9.55 H (1.4-6.9) x10^3/uL Basophils # 0.01 (0-0.4) x10^3/uL Sodium 135 L (137-145) mmol/L Potassium 5.2 H (3.5-5.1) mmol/L Chloride 105 (98-107) mmol/L Carbon Dioxide 23 (22-30) mmol/L Anion Gap 12.1 (5-15) MEQ/L BUN 52 H (9-20) mg/dL Creatinine 1.65 H (0.66-1.25) mg/dL Estimated GFR 42.9 ML/MIN Glucose 287 H (74-106) mg/dL POC Glucometer 251 H (74 to 106) mg/dL Calcium 7.8 L (8.4-10.2) mg/dL Multi-Disciplinary Progress Notes: Multi-Disciplinary Progress Notes 07/23/22 13:06 Physical Therapy Note by Rima(Lisseth#[id number]),Ilda PT. WAS SEEN BY [facility]orbin THIS A.M. PT. IN BED UPON P.T. ARRIVAL TO ROOM. NO C/O PN. PT. REPORTS HE DID FALL LAST NIGHT ONTO HIS BUTTOCKS ATTEMPTING TO GET TO THE BATHROOM. REPORTS HE GOT TANGLED UP IN O2 LINE. PT. REFUSED USING WALKER FOR STABILITY. LIVES ALONE. PT. DENIED NEED FOR INPT. REHAB OR HHC UPON D/C. O2 SATS 96% AT REST ON 2 L O2. PERFORMED SUPINE TO SIT W/ SBA. NO C/O DIZZINESS W/ POSITION CHANGE. SIT TO STAND - SBA. AMBULATED ~ 60' IN ROOM WITHOUT A.D. O2 SATS 95% W/ GAIT ON 2L. PT. ABLE TO FINISH WALK ON RA AND SIT IN CHAIR AFTERWARD W/ SATS 93% ON RA. PT. NOT PARTICULARLY MOTIVATED TO PARTICIPATE IN THERAPY. WILL CONT. TO WORK ON GAIT STABILITY AND PROPER BREATHING DURING STAY; HOWEVER, PT. SHOULD MOVE F REQUENTLY W/ NSG STAFF WELL IT IS UNLIKELY THAT HE WILL WANT ADDITIONAL SERVICES AFTER D/C. Initialized on 07/23/22 13:06 - END OF NOTE 07/23/22 13:00 Case Management Note by Jordana Jerez S/W PATIENT AGAIN VIA PHONE- HE CONTINUES TO REFUSE REHAB OR HHC. HE STATED " I'M TIRED OF BEING BOTHERED WITH THIS SHIT" S/W [facility] ([phone]) PER HER REQUEST AND HIS PERMISSION- SHE WOULD IDEALLY LIKE PATIENT TO GO TO REHAB OR AT THE VERY LEAST TAKE HHC. HOWEVER SHE IS AWARE PATIENT HAS BEEN ADAMANT AGAINST THIS. SHE REPORTS SHE IS UNABLE TO STAY WITH PATIENT AT TIME OF DC. BUT CAN CHECK ON HIM DAILY. SHE WILL TRY TO PERSUADE PATIENT INTO EITHER REHAB FOR HHC AND WILL UPDATE CASE MANAGEMENT IF SHE IS SUCCESSFUL Initialized on 07/23/22 13:00 - END OF NOTE Assessment/Plan (1) COVID-19 Current Visit: Yes Status: Acute Assessment & Plan: continue remdesivir and dexamethasone Code(s): U07.1 - COVID-19 (2) CHF (congestive heart failure) Current Visit: Yes Status: Acute Code(s): I50.9 - HEART FAILURE, UNSPECIFIED (3) Dehydration Current Visit: Yes Status: Acute Code(s): E86.0 - DEHYDRATION
[2022-07-24] MEDS: Docusate Sodium 100 MG PO SCH (09:34)
[2022-07-24] MEDS: ZOCOR 20MG PO SCH (09:34)
[2022-07-24] MEDS: Toprol Xl 50 MG PO SCH (09:34)
[2022-07-24] MEDS: MAG-OX 400 PO SCH (09:34)
[2022-07-24] MEDS: XARELTO 10 MG TABLET PO SCH (09:34)
[2022-07-24] MEDS: ENTRESTO 49 MG-51 MG TABLET PO SCH ×2 (09:34→21:21)
[2022-07-24] MEDS: PLAVIX Tablet PO SCH (09:35)
[2022-07-24] MEDS: DECADRON 10MG INJ. IV SCH (09:35)
[2022-07-24] MEDS: HUMALOG SQ PRN ×3 (09:35→21:33)
[2022-07-24] MEDS: Dextrose 5%-NS IV Solution 1000 ML 1,000 ML IV SCH (20:32)
[2022-07-24] MEDS: REMDESIVIR 100 MG in Sodium Chloride 100ML MINI-BAG PLUS 100 ML IV SCH (21:21)
[2022-07-25 05:28] LABS: Absolute Neutrophil Ct (ANC) 7.55 x10^3/uL (1.4-6.9); Basophil (Absolute #) 0.01 x10^3/uL (0-0.4); Eosinophil (Absolute #) 0 x10^3/uL (0-0.5); Hematocrit 30.4 % (42-50); Hemoglobin 9.6 g/dL (12.5-18.0); Lymphocytes % 9.9 % (24.0-44.0); Mean Cell Volume 98.4 fL (78-100); Mean Corpuscular Hemoglobin 31.1 pg (26-32); Mean Corpuscular Hgb Concent. 31.6 g/dL (32-36); Mean Platelet Volume 10.6 fL (7.5-11.0); Monocyte (Absolute #) 0.56 x10^3/uL (0.0-1.3); Monocytes % 6.1 % (0.0-12.0); Neutrophil % 82.7 % (36.0-66.0); Platelet Count 192 x10^3/uL (150-450); Red Blood Count 3.09 x10^6/uL (4.1-5.6); Red Cell Distribution Width 13.1 % (11.5-14.0); White Blood Count 9.1 x10^3/uL (4.0-10.5)
[2022-07-25 06:12] LABS: ANION GAP 11.2 MEQ/L (5-15); Calcium 7.8 mg/dL (8.4-10.2); Creatinine 1 1.53 mg/dL (0.66-1.25); EST GLOMERULAR FILTRATION RATE 46.8 ML/MIN; MAGNESIUM 2.2 mg/dL (1.6-2.3); Potassium 5.4 mmol/L (3.5-5.1)
[2022-07-25 07:15] VITALS: PULSE 70
--- NOTE | 2022-07-25 08:09 | PCM.DS ---
Discharge Summary Date of Admission: 07/22/22 07:45 Admitting Physician: BRIANNE GIANG DO Primary Care Provider: NOEL PARIKH DILLON Allergies Allergies No Known Drug Allergies Allergy (Verified 07/21/22 18:10) Hospital Summary - Hospital Course Hospital Course: patient admitted with cough and shortness of breath, covid +, completed course of remdesivir on date of discharge. his breathing is much better and he is requiring minimal supplemental oxygen at time of discharge - Vitals & Intake/Output Vital Signs: Vital Signs Temperature 97.3 F 07/25/22 07:15 Pulse Rate 70 07/25/22 07:15 Respiratory Rate 19 07/25/22 07:15 Blood Pressure 149/78 07/25/22 07:15 O2 Sat by Pulse Oximetry 95 07/25/22 07:15 Intake & Output: Intake & Output 07/22/22 07/23/22 07/24/22 07/25/22 11:59 11:59 11:59 11:59 Intake Total 1220 2959 2160 1680 Balance 1220 2959 2160 1680 Weight 136.8 kg 136.8 kg - Lab Result Diagrams: 07/25/22 05:10 07/25/22 05:10 Lab Results-Last 24 Hrs: Lab Results-Last 24 Hours 07/24/22 07/24/22 07/24/22 Range/Units 11:22 15:23 21:13 WBC (4.0-10.5) x10^3/uL RBC (4.1-5.6) x10^6/uL Hgb (12.5-18.0) g/dL Hct (42-50) % MCV (78-100) fL MCH (26-32) pg MCHC (32-36) g/dL RDW (11.5-14.0) % Plt Count (150-450) x10^3/uL MPV (7.5-11.0) fL Gran % (36.0-66.0) % Immature Gran % (Auto) (0.00-0.4) % Nucleat RBC Rel Count (0.00-0.1) % Eos # (Auto) (0-0.5) x10^3/uL Immature Gran # (Auto) (0.00-0.03) x10^3u/L Absolute Lymphs (auto) (1.0-4.6) x10^3/uL Absolute Monos (auto) (0.0-1.3) x10^3/uL Absolute Nucleated RBC (0.00-0.01) x10^3u/L Lymphocytes % (24.0-44.0) % Monocytes % (0.0-12.0) % Eosinophils % (0.00-5.0) % Basophils % (0.0-0.4) % Absolute Granulocytes (1.4-6.9) x10^3/uL Basophils # (0-0.4) x10^3/uL Sodium (137-145) mmol/L Potassium (3.5-5.1) mmol/L Chloride (98-107) mmol/L Carbon Dioxide (22-30) mmol/L Anion Gap (5-15) MEQ/L BUN (9-20) mg/dL Creatinine (0.66-1.25) mg/dL Estimated GFR ML/MIN Glucose (74-106) mg/dL POC Glucometer 200 H TNP 297 H (74 to 106) mg/dL Calcium (8.4-10.2) mg/dL Magnesium (1.6-2.3) mg/dL 07/25/22 07/25/22 07/25/22 Range/Units 05:10 05:10 06:42 WBC 9.1 (4.0-10.5) x10^3/uL RBC 3.09 L (4.1-5.6) x10^6/uL Hgb 9.6 L (12.5-18.0) g/dL Hct 30.4 L (42-50) % MCV 98.4 (78-100) fL MCH 31.1 (26-32) pg MCHC 31.6 L (32-36) g/dL RDW 13.1 (11.5-14.0) % Plt Count 192 (150-450) x10^3/uL MPV 10.6 (7.5-11.0) fL Gran % 82.7 H (36.0-66.0) % Immature Gran % (Auto) 1.2 H (0.00-0.4) % Nucleat RBC Rel Count 0.0 (0.00-0.1) % Eos # (Auto) 0 (0-0.5) x10^3/uL Immature Gran # (Auto) 0.11 H (0.00-0.03) x10^3u/L Absolute Lymphs (auto) 0.90 L (1.0-4.6) x10^3/uL Absolute Monos (auto) 0.56 (0.0-1.3) x10^3/uL Absolute Nucleated RBC 0.00 (0.00-0.01) x10^3u/L Lymphocytes % 9.9 L (24.0-44.0) % Monocytes % 6.1 (0.0-12.0) % Eosinophils % 0.0 (0.00-5.0) % Basophils % 0.1 (0.0-0.4) % Absolute Granulocytes 7.55 H (1.4-6.9) x10^3/uL Basophils # 0.01 (0-0.4) x10^3/uL Sodium 135 L (137-145) mmol/L Potassium 5.4 H (3.5-5.1) mmol/L Chloride 104 (98-107) mmol/L Carbon Dioxide 25 (22-30) mmol/L Anion Gap 11.2 (5-15) MEQ/L BUN 57 H (9-20) mg/dL Creatinine 1.53 H (0.66-1.25) mg/dL Estimated GFR 46.8 ML/MIN Glucose 326 H (74-106) mg/dL POC Glucometer 311 H (74 to 106) mg/dL Calcium 7.8 L (8.4-10.2) mg/dL Magnesium 2.2 (1.6-2.3) mg/dL Micro Results-Entire Visit: Accuchecks Date 07/25/22 Date 07/24/22 Date 07/24/22 Time 07:13 Time 16:00 Time 11:33 - Procedures and Test Procedures and Tests throughout Hospitalization: Therapy Orders & Screens 07/22/22 00:58 Respiratory Therapy Consult ROUTINE Comment: Reason For Exam: 07/22/22 02:34 Oxygen Nasal Cannula 2 lpm Comment: Diagnosis: COVID 19 07/22/22 11:28 PT Eval & Treat ( Order) ONCE Reason for Eval:: weakness Diagnosis: COVID 19 07/24/22 12:32 RT Miscellaneous Order ROUTINE Comment: Physician Instructions: WEAN O2 MIRIAM Reason For Exam: Diagnosis: COVID 19, WEAKNESS, HYPOGLYCEMIA Discharge Exam General Appearance: obese Neurologic Exam: alert, oriented x 3 Respiratory Exam: normal breath sounds, lungs clear, No respiratory distress Cardiovascular Exam: regular rate/rhythm, normal heart sounds Gastrointestinal/Abdomen Exam: soft, No tenderness, No mass Extremity Exam: pedal edema, swelling Final Diagnosis/Problem List - Final Discharge Diagnosis/Problem (1) COVID-19 Current Visit: Yes Status: Acute Assessment & Plan: completed course of remdesivir, home on dexamethasone, continue xarelto. improving clinically Code(s): U07.1 - COVID-19 (2) CHF (congestive heart failure) Current Visit: Yes Status: Acute Assessment & Plan: stable, euvolemic on discharge Code(s): I50.9 - HEART FAILURE, UNSPECIFIED (3) Dehydration Current Visit: Yes Status: Acute Code(s): E86.0 - DEHYDRATION - Discharge Disposition: Home, Self-Care Condition: Stable Prescriptions: New dexAMETHasone [Dexamethasone] 6 mg PO DAILY #7 tablet Continue Magnesium Oxide 400 mg [Mag-Ox 400] 400 mg PO DAILY Docusate Sodium 100 mg [Docusate Sodium 100 MG] 100 mg PO DAILY Pravastatin Sodium [Pravachol] 40 mg PO HS Clopidogrel Bisulfate [PLAVIX Tablet] 75 mg PO DAILY Metoprolol Succinate 50 mg [Toprol Xl 50 MG] 50 mg PO DAILY Rivaroxaban [Xarelto] 15 mg PO DAILY Sacubitril/Valsartan [Entresto 49 mg-51 mg Tablet] 1 each PO BID Insulin Glargine,Hum.rec.anlog [Lantus] 100 unit SQ LUNCH Insulin Lispro [Humalog] 100 unit SQ DAILY PRN PRN Reason: Hyperglycemia Follow up with: NOEL PARIKH MD [Primary Care Provider] -
[2022-07-25] MEDS: PLAVIX Tablet PO SCH (09:28)
[2022-07-25] MEDS: ZOCOR 20MG PO SCH (09:28)
[2022-07-25] MEDS: Docusate Sodium 100 MG PO SCH (09:28)
[2022-07-25] MEDS: ENTRESTO 49 MG-51 MG TABLET PO SCH (09:28)
[2022-07-25] MEDS: MAG-OX 400 PO SCH (09:28)
[2022-07-25] MEDS: Toprol Xl 50 MG PO SCH (09:29)
[2022-07-25] MEDS: DECADRON 10MG INJ. IV SCH (09:29)
[2022-07-25] MEDS: XARELTO 10 MG TABLET PO SCH (09:31)
[2022-07-25] MEDS: HUMALOG SQ PRN (09:32)
[2022-07-25 11:17] VITALS: BP 132/56; O2SAT 92
[2022-07-25] MEDS: REMDESIVIR 100 MG in Sodium Chloride 100ML MINI-BAG PLUS 100 ML IV SCH (12:21)
== END 2022-07-25 13:40 | disposition home or self-care (01) | DRG 179 ==
LOC: ED 18:08 → MED SURG 07-22 00:55 → OBSVTOIN 07-22 07:45
PROVIDERS: ADMIT Family Medicine; ATTEND Family Medicine
DX: U07.1 COVID-19 (principal); I11.0 Hypertensive heart disease with heart failure; I50.9 Heart failure, unspecified; E86.0 Dehydration; E11.22 Type 2 diabetes mellitus with diabetic chronic kidney disease; R53.1 Weakness; I25.10 Atherosclerotic heart disease of native coronary artery without angina pectoris; E78.5 Hyperlipidemia, unspecified; Z79.01 Long term (current) use of anticoagulants; Z79.899 Other long term (current) drug therapy; Z20.828 Contact with and (suspected) exposure to other viral communicable diseases; Z85.828 Personal history of other malignant neoplasm of skin
CPT/HCPCS: 0241U; 36415; 71045; 80048; 80053; 81015; 82947; 83036; 83735; 83880; 84484; 85025; 85379; 93005; 93041; 94760; 94762; 96360; 96361; 96365; 97161; 97530; 99285; J0248; J1100; J1817; A9270-GY